=== PATIENT | female | born 1945 | race Caucasian/White ===

== ENCOUNTER 2017-12-08 16:06 | Emergency (ER) | payer MEDICARE, OTHER ==
[~2017-12-08] VITALS: Ht 170.2 cm; Wt 122.5 kg
--- NOTE | 2017-12-08 16:32 | ED Head Injury ---
General Chief Complaint: Head/Cervical Problems Stated Complaint: HEAD INJ Source: patient Exam Limitations: no limitations History of Present Illness Date Seen by Provider: Dec 08, 2017 Time Seen by Provider: 16:10 Initial Comments Patient fell at a local event today at about 1230 and struck her head. She declined EMS transfer at the time. She self presented to outside facility ( [facility]) for evaluation. She was noted to have large hematoma and small laceration. The laceration was repaired but patient is on Coumadin and needed CT scan. She is transferred here for further evaluation and CT scan. Patient denies loss of consciousness but was a little nauseated after the incident. INR from the outside facility is 3.4. Does have some residual headache and large hematoma to the right frontal area but no other injury. Allergies and Home Medications Allergies Coded Allergies: codeine (Verified Allergy, Unknown, 12/08/17) Home Medications Unable to Obtain Active Prescriptions or Reported Meds Constitutional: no symptoms reported Eyes: No Symptoms Reported Ears, Nose, Mouth, Throat: no symptoms reported Respiratory: no symptoms reported Cardiovascular: no symptoms reported Gastrointestinal: no symptoms reported Skin: see HPI, change in color, lesions Psychiatric/Neurological: No Symptoms Reported All Other Systems Reviewed Negative Unless Noted: Yes Past Tdcirzo-Jtrxdd-Ufwtcy Hx Patient Social History Alcohol Use: Denies Use Recreational Drug Use: No Smoking Status: Never a Smoker Surgeries History of Surgeries: Yes Surgeries: Adenoidectomy, Gallbladder, Hysterectomy, Orthopedic, Tonsillectomy Respiratory History of Respiratory Disorde: No Cardiovascular History of Cardiac Disorders: Yes Cardiac Disorders: Deep Vein Thrombosis, High Cholesterol Neurological History of Neurological Disord: No Genitourinary History of Genitourinary Disor: No Gastrointestinal History of Gastrointestinal Di: No Musculoskeletal History of Musculoskeletal Dis: Yes Musculoskeletal Disorders: Arthritis Endocrine History of Endocrine Disorders: Yes Endocrine Disorders: Diabetes, Non-Insulin dep Reviewed Nursing Assessment Reviewed/Agree w Nursing PMH: Yes Family Medical History Significant Family History: No Pertinent Family Hx Physical Exam Vital Signs Vital Signs - First Documented 12/08/17 16:33 Temp 97.5 Pulse 90 Resp 16 B/P (MAP) 143/81 (101) Pulse Ox 99 O2 Delivery Room Air Capillary Refill : General Appearance: WD/WN, no apparent distress HEENT: PERRL/EOMI, TMs normal, pharynx normal Neck: full range of motion, supple Cardiovascular: regular rate, rhythm, no murmur Respiratory: lungs clear, normal breath sounds Gastrointestinal: non tender, soft Psychiatric: alert, oriented x 3 Crainal Nerves: normal hearing, normal speech, PERRL Motor/Sensory: no motor deficit, no sensory deficit Skin: normal color, warm/dry Eh Coma Score Best Eye Response: (4) Open Spontaneously Best Verbal Response: (5) Oriented Best Motor Response: (6) Obeys Commands Progress/Results/Core Measures Results/Orders My Orders Orders - MEGAN HOLCOMB MD Ct Head Wo (12/08/17 16:07) Vital Signs/I&O Vital Sign - Last 12Hours 12/08/17 16:33 Temp 97.5 Pulse 90 Resp 16 B/P (MAP) 143/81 (101) Pulse Ox 99 O2 Delivery Room Air Progress Note : Progress Note Seen and evaluated. CT scan of head ordered. Lab and chart reviewed from [facility]. Hemoglobin 13.3, white cell count 6.6 and platelets of 205. Chemistries are normal. INR was 3.4. 1535: CT of the head was negative. I did discuss the case with Dr. Forte. He recommends offering 12 are observation. This was done and the patient declined. I went over discharge instructions in full with the patient and family as well as return precautions to ensure that the patient return if there is any concerns. We did discuss the risk of bleeding in the head even with a negative CT scan and patient verbalize understanding. Discharged home with return precautions. Patient family verbalized understanding instructions and agreement with plan. Diagnostic Imaging Diagonstic Imaging: CT Plain Films/CT/US/NM/MRI: head Comments [place] NAME: [facility] REC#: [id number] PT STATUS: REG ER : 1945 PHYSICIAN: MEGAN HOLCOMB MD ADMIT DATE: 12/08/17/ER Draft Date of Exam:12/08/17 CT HEAD WO CLINICAL INDICATION: Patient is status post fall with large hematoma on right forehead. EXAM: Axial CT scan of the brain performed without IV contrast. COMPARISON: None. FINDINGS: There is no evidence of acute cerebral infarct, intracranial hemorrhage, or gross mass effect. There are some subtle focal areas of low-attenuation white matter changes within both cerebral hemispheres, likely representing chronic small vessel ischemic disease. There is normal rodriguez-white matter distinction. The brain parenchymal volume appears appropriate for patient's age. There is no significant midline shift or herniation. There is no evidence of hydrocephalus. The basal cisterns are unremarkable. There is a large extracranial soft tissue hematoma/swelling in the right frontal region. There is no skull fracture. The skull, extracranial soft tissue, and orbits are unremarkable. There is minimal mucosal thickening involving the left maxillary sinus. IMPRESSION: 1: There is no evidence of intracranial hemorrhage or other acute intracranial process. 2: There is a large extracranial hematoma/swelling in the right frontal region. There is no skull fracture. 3: Age-related brain parenchymal changes. Dictated on workstation # [id number] Dict: 12/08/17 1638 Trans: 12/08/17 1643 [id number] Interpreted by: DEB CRUZ MD Electronically signed by: Reviewed: Reviewed by Me Departure Impression Impression: Primary Impression: Concussion without loss of consciousness Qualified Codes: S06.0X0A - Concussion without loss of consciousness, initial encounter Additional Impression: Hematoma of frontal scalp Qualified Codes: S00.03XA - Contusion of scalp, initial encounter Disposition: 01 HOME, SELF-CARE Condition: Stable Departure-Patient Inst. Decision time for Depature: 17:38 Referrals: NO,LOCAL PHYSICIAN (PCP/Family) Primary Care Physician Patient Instructions: Concussion, Adult (DC), HEAD RNYFXR-KHPET-CH WAKE-UP Add. Discharge Instructions: All discharge instructions reviewed with patient and/or family. Voiced understanding. Continue previous discharge instructions for the sutured laceration. You should talk with her primary care provider about Coumadin/warfarin use. Skipped tomorrow morning's dose of your Coumadin/warfarin and returned to normal on Monday morning. You may use ice packs to the affected area 20 minutes per hour as needed for pain and swelling. Return for worse pain, vomiting, vision or balance problems, weakness, coordination problems or other concerns as needed. You may take 2 extra strength Tylenol/acetaminophen (1000 mg total) every 6 hours as needed for pain. Scripts Unable to Obtain Active Prescriptions or Reported Meds MEGAN HOLCOMB MD Dec 08, 2017 16:32
--- NOTE | 2017-12-08 16:44 | Diagnostic Imaging Report ---
CLINICAL INDICATION: Patient is status post fall with large hematoma on right forehead. EXAM: Axial CT scan of the brain performed without IV contrast. COMPARISON: None. FINDINGS: There is no evidence of acute cerebral infarct, intracranial hemorrhage, or gross mass effect. There are some subtle focal areas of low-attenuation white matter changes within both cerebral hemispheres, likely representing chronic small vessel ischemic disease. There is normal rodriguez-white matter distinction. The brain parenchymal volume appears appropriate for patient's age. There is no significant midline shift or herniation. There is no evidence of hydrocephalus. The basal cisterns are unremarkable. There is a large extracranial soft tissue hematoma/swelling in the right frontal region. There is no skull fracture. The skull, extracranial soft tissue, and orbits are unremarkable. There is minimal mucosal thickening involving the left maxillary sinus. IMPRESSION: 1: There is no evidence of intracranial hemorrhage or other acute intracranial process. 2: There is a large extracranial hematoma/swelling in the right frontal region. There is no skull fracture. 3: Age-related brain parenchymal changes. Dictated by: Dictated on workstation # [id number]
[2017-12-08 18:04] VITALS: BP 140/82
== END 2017-12-08 18:04 | disposition home or self-care (01) ==
LOC: EDUNIT# 16:06 → ER 16:07
DX: S06.0X0A Concussion without loss of consciousness, initial encounter (principal); R40.2142 Coma scale, eyes open, spontaneous, at arrival to emergency department; R40.2252 Coma scale, best verbal response, oriented, at arrival to emergency department; R40.2362 Coma scale, best motor response, obeys commands, at arrival to emergency department; E78.00 Pure hypercholesterolemia, unspecified; E11.9 Type 2 diabetes mellitus without complications; Z88.5 Allergy status to narcotic agent; Z90.710 Acquired absence of both cervix and uterus; Z90.89 Acquired absence of other organs; Z86.718 Personal history of other venous thrombosis and embolism; Z79.01 Long term (current) use of anticoagulants; W22.09XA Striking against other stationary object, initial encounter
CPT/HCPCS: 70450; 99282

== ENCOUNTER 2020-05-30 10:24 | Emergency (ER) | payer MEDICARE, OTHER ==
[~2020-05-30] VITALS: Ht 172.2 cm; Wt 135.2 kg
--- OUTSIDE RECORDS SUMMARY | 2020-05-30 10:30 | XMS REPORT ---
Author Author Sonia Goldstein [facility] Address [address] [place], [place] [address] Care Team Providers Care Plant Technical Specialist Name Role Phone Rachael Goldstein PCP Allergies and Adverse Reactions Name Reaction Notes codeine sulfate Plan of Treatment Not available. Medications Active Name Start Date Estimated Completion Date SIG Co mments cranberry extract 500 mg oral capsule take 1 capsule by oral route 2 times a day Tylenol Extra Strength 500 mg oral tablet take 2 tablets (1,000 mg) by oral route every 6 hours as needed Calcium 600 600 mg calcium (1,500 mg) oral tablet B12 500 mcg Orals lozenge Chew one gummie once daily [place]-3 350 mg-235 mg- 90 mg-597 mg oral capsule,delayed release (DR/EC) take 2 capsules by oral route daily Vitamin C 1000 mcg oral Take one tablet b y mouth once daily [place] Black Elderberry 1000 mg take tw o casules by mouth in the morning magnesium 250 mg oral tablet take 1 table t by oral route daily Vision Formula (with lutein) 1,000 unit-200 mg-60 unit-2 mg oral tablet take 1 tablet by oral route daily Betimol 0.5 % ophthalmic (eye) drops instill 1 drop into affected eye(s) by ophthalmic route 2 times per day latanoprost 0.005 % ophthalmic (eye) drops instill 1 drop into affected eye(s) by ophthalmic route once daily in the evening chlorthalidone 25 mg oral tablet 10/10/2019 10/04/2020 take 1 tablet (25 mg) by oral route once daily for 90 days One Touch Test Strips 0 10/10/2019 06/01/2021 use as indicated. DX E10.9 spironolactone 50 mg oral tablet 11/11/2019 ... TAKE 1 TABLET BY MOUTH TWICE DAILY .... Coumadin 1 mg oral tablet 12/18/2019 12/12/2020 Take 1 tablet by mouth daily as directed Coumadin 5 mg oral tablet 12/18/2019 12/12/2020 Take 1 tablet by mouth daily as directed simvastatin 20 mg oral tablet 02/03/2020 .. . TAKE 1 TABLET BY MOUTH EVERY DAY LATE IN THE DAY ... furosemide 80 mg oral tablet 02/11/2020 ... TAKE 1 TABLET BY MOUTH ONCE DAILY .... Effer-K 25 mEq oral tablet, effervescent 02/11/2020 ... TAKE 3 TABLETS BY MOUTH TWICE DAILY ..... lisinopril 10 mg oral tablet 02/11/2020 ... TAKE 1 TABLET BY MOUTH EVERY DAY ... 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, managed as type 2 Active Vital Signs Date Time BP-Sys(mm[Hg] BP-Magaly(mm[Hg]) HR(bpm) RR(rpm) Temp WT HT HC BMI BSA BMI Percentile O2 Sat(%) 12/23/2019 10:43:00 AM 126 mm[Hg] 68 mm[Hg] 90 {beats}/min 18 rpm 98.6 F 297 lbs 67 in 46.5163 kg/m2 2.5236 m2 99 % 10/10/2019 11:35:00 AM 108 mm[Hg] 70 mm[Hg] 62 {beats}/min 18 rpm 98.2 F 299 lbs 67 in 46.83 kg/m2 2.53 m2 100 % Social History Name Description Comments Tobacco Never smoker History of Procedures Date Ordered Description Order Status 10/10/2019 12:31 PM PROTHROMBIN TIME Reviewed 10/24/2019 11:02 AM PROTHROMBIN TIME Reviewed 10/24/2019 12:00 AM CAPILLARY BLOOD DRAW Reviewed 11/07/2019 12:00 AM CAPILLARY BLOOD DRAW Reviewed 11/07/2019 10:45 AM PROTHROMBIN TIME Reviewed 12/04/2019 12:00 AM COMPLETE CBC W/AUTO DIFF WBC Reviewed 12/04/2019 12:00 AM COMPREHEN METABOLIC PANEL Reviewed 12/04/2019 12:00 AM ASSAY THYROID STIM HORMONE Reviewed 12/04/2019 12:00 AM ASSAY OF TOTAL THYROXINE Reviewed 12/04/2019 12:00 AM GLYCOSYLATED HEMOGLOBIN TEST Reviewed 12/04/2019 12:00 AM LIPID PANEL Reviewed 12/04/2019 12:00 AM VITAMIN D 25 HYDROXY Reviewed 12/12/2019 12:00 AM COLLECTION VENOUS BLOOD VENIPUNCTURE Rev iewed 12/12/2019 12:02 PM PROTHROMBIN TIME Reviewed 12/23/2019 11:26 AM PROTHROMBIN TIME Reviewed 12/23/2019 12:00 AM CAPILLARY BLOOD DRAW Reviewed 01/30/2020 10:55 AM PROTHROMBIN TIME Reviewed 01/30/2020 12:00 AM CAPILLARY BLOOD DRAW Reviewed 03/05/2020 11:05 AM PROTHROMBIN TIME Reviewed 03/05/2020 12:00 AM CAPILLARY BLOOD DRAW Reviewed 04/09/2020 5:27 PM PROTHROMBIN TIME Reviewed Results Summary Date and Description Results 10/10/2019 12:31 PM PROTIME 20.90 secsINR 1.70 s ecs 10/24/2019 11:02 AM PROTIME 50.80 secsINR 4.20 s ecs 11/07/2019 10:45 AM PROTIME 35.20 secsINR 2.90 s ecs 12/12/2019 11:15 AM WBC 5.5 RBC 4.11 HGB 12.40 g /dLHCT 38.50 %MCV 94.0 fLMCH 30.20 pgMCHC 32.20 g/dLRDW SD 48 fLRDW CV 13.90 %MPV 11.90 fLPLT 193 x10E3/uLNRBC# 0.00 NRBC% 0.0 %NEUT 55.6 %LYMP 27.3 %MONO 10.5 %EOS 5.5 %BASO 0.7 #NEUT 3.06 #LYMP 1.50 #MONO 0.58 #EOS 0.30 #BASO 0.04 MANUAL DIFF NOT IND TSH 1.66 T4 8.3 GLUCOSE 103 SODIUM 135 POTASSIUM 4.5 CHLORIDE 97.0 mmol/LCO2 28 BUN 12.0 mg/dLCREATININE 0.650 mg/dLSGOT/AST 17 SGPT/ALT 17 ALK PHOS 61 TOTAL P ROTEIN 6.8 ALBUMIN 4.5 TOTAL BILI 1.0 CALCIUM 9.70 mg/dLAGE 74 GFR NonAA 90 GFR AA 109 eGFR 90 mL/min/1.73meGFR AA* >60 mL/min/1.73mTRIGLYCERIDES 111 CHOLESTEROL 168.0 mg/dLHDL 64 TOT CHOL/HDL 2.6 LDL (CALC) 82 VITAMIN D 36.1 HGB A1C 5.80 %Est Avg Glucose 119.8 12/12/2019 12:02 PM PROTIME 41.0 secsINR 3.40 se cs 12/23/2019 11:26 AM PROTIME 32.0 secsINR 2.70 se cs 01/30/2020 10:55 AM PROTIME 37.30 secsINR 3.10 s ecs 03/05/2020 11:05 AM PROTIME 41.70 secsINR 3.50 s ecs 04/09/2020 5:27 PM PROTIME 50.20 secsINR 4.20 s ecs History Of Immunizations Not available. 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 Nov 07 2019 10:45AM Hyperlipidemia Dec 04 2019 4:16PM Rheumatoid arteritis Dec 04 2019 4:16PM Diabetes mellitus type 1.5, managed as type 2 Dec 04 2019 4 :16PM Mixed hyperlipidemia Dec 04 2019 4:16PM Acquired hypothyroidism Dec 04 2019 4:16PM Vitamin D deficiency Dec 04 2019 4:16PM USP (current) use of anticoagulants Dec 12 2019 12:02P M Macular degeneration Dec 23 2019 10:48AM Edema Dec 23 2019 10:48AM History of DVT (deep vein thrombosis) Dec 23 2019 10:48AM Lupus Dec 23 2019 10:48AM Diabetes mellitus type 1.5, managed as type 2 Dec 23 2019 10 :48AM USP (current) use of anticoagulants Jan 30 2020 10:55A M USP (current) use of anticoagulants Mar 05 2020 11:05A 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 Wiliam Emmanuel DO 01/30/2020 Laboratory Rachael Goldstein BACK TENDER INSULATION BOARD 12/23/2019 Office visit Rachael Goldstein BACK TENDER INSULATION BOARD 12/12/[address] Wiliam Emmanuel DO 11/07/2019 Laboratory Rachael Goldstein BACK TENDER INSULATION BOARD 10/24/2019 Laboratory Meghan Bowen APR N 10/10/2019 Office visit Rachael Goldstein BACK TENDER INSULATION BOARD
--- OUTSIDE RECORDS SUMMARY | 2020-05-30 10:30 | XMS REPORT ---
Author Author Sonia Goldstein [facility] Address [address] [place], [place] [address] Care Team Providers Care Solid Glass Rod Dowel Machine Operator Name Role Phone Rachael Goldstein PCP Allergies [...] Orals lozenge Chew one gummie once daily [place]-3 350 mg-235 mg- 90 mg-597 mg oral [...] Reviewed 04/09/2020 5:27 PM PROTHROMBIN TIME Reviewed 04/23/2020 11:06 AM PROTHROMBIN TIME Reviewed Results Summary Date and [...] PM PROTIME 50.20 secsINR 4.20 s ecs 04/23/2020 11:06 AM PROTIME 31.30 secsINR 2.60 s ecs History Of Immunizations Not available. [...] type 2 Oct 10 2019 11 :40AM [facility] (current) use of anticoagulants Oct 24 2019 11:02A M [facility] use of anticoagulants Nov 07 2019 10:45AM Hyperlipidemia Dec 04 2019 4:16PM Rheumatoid arteritis Dec 04 2019 4:16PM Diabetes mellitus type 1.5, managed as type 2 Dec 04 2019 4 :16PM Mixed hyperlipidemia Dec 04 2019 4:16PM Acquired hypothyroidism Dec 04 2019 4:16PM Vitamin D deficiency Dec 04 2019 4:16PM [facility] (current) use of anticoagulants Dec 12 2019 12:02P M Macular degeneration Dec 23 2019 10:48AM Edema Dec 23 2019 10:48AM History of DVT (deep vein thrombosis) Dec 23 2019 10:48AM Lupus Dec 23 2019 10:48AM Diabetes mellitus type 1.5, managed as type 2 Dec 23 2019 10 :48AM [facility] (current) use of anticoagulants Jan 30 2020 10:55A M [facility] (current) use of anticoagulants Mar 05 2020 11:05A 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 Wiliam Emmanuel DO 01/30/2020 Laboratory Rachael Goldstein FIBER ARTIST 12/23/2019 Office visit Rachael Goldstein FIBER ARTIST 12/12/[address] Wiliam Emmanuel DO 11/07/2019 Laboratory Rachael Goldstein FIBER ARTIST 10/24/2019 Laboratory Meghan Bowen APR N 10/10/2019 Office visit Rachael Goldstein FIBER ARTIST
--- OUTSIDE RECORDS SUMMARY | 2020-05-30 10:30 | XMS REPORT ---
Author Author Sonia Goldstein [facility] Address [address] [place], [place] [address] Care Team Providers Care Patient Scheduler Name Role Phone Rachael Goldstein PCP Allergies [...] Orals lozenge Chew one gummie once daily [place]-3 350 mg-235 mg- 90 mg-597 mg oral [...] type 2 Oct 10 2019 11 :40AM nursing home (current) use of anticoagulants Oct 24 2019 11:02A M nursing home use of anticoagulants Nov 07 2019 10:45AM Hyperlipidemia Dec 04 2019 4:16PM Rheumatoid arteritis Dec 04 2019 4:16PM Diabetes mellitus type 1.5, managed as type 2 Dec 04 2019 4 :16PM Mixed hyperlipidemia Dec 04 2019 4:16PM Acquired hypothyroidism Dec 04 2019 4:16PM Vitamin D deficiency Dec 04 2019 4:16PM nursing home (current) use of anticoagulants Dec 12 2019 12:02P M Macular degeneration Dec 23 2019 10:48AM Edema Dec 23 2019 10:48AM History of DVT (deep vein thrombosis) Dec 23 2019 10:48AM Lupus Dec 23 2019 10:48AM Diabetes mellitus type 1.5, managed as type 2 Dec 23 2019 10 :48AM nursing home (current) use of anticoagulants Jan 30 2020 10:55A M nursing home (current) use of anticoagulants Mar 05 2020 11:05A 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 Wiliam Emmanuel DO 01/30/2020 Laboratory Rachael Goldstein LENDING ACTIVITIES SUPERVISOR 12/23/2019 Office visit Rachael Goldstein LENDING ACTIVITIES SUPERVISOR 12/12/[address] Wiliam Emmanuel DO 11/07/2019 Laboratory Rachael Goldstein LENDING ACTIVITIES SUPERVISOR 10/24/2019 Laboratory Meghan Bowen APR N 10/10/2019 Office visit Rachael Goldstein LENDING ACTIVITIES SUPERVISOR
--- OUTSIDE RECORDS SUMMARY | 2020-05-30 10:30 | XMS REPORT ---
Author Author Sonia Emmanuel [facility] Address [address] [place], [place] [address] Care Team Providers Care Bag Bleacher Name Role Phone Wiliam Emmanuel PCP Allergies and Adverse Reactions Name Reaction [...] Orals lozenge Chew one gummie once daily [place]-3 350 mg-235 mg- 90 mg-597 mg oral [...] 03/05/2020 12:00 AM CAPILLARY BLOOD DRAW Reviewed Results Summary Date and Description Results [...] AM PROTIME 41.70 secsINR 3.50 s ecs History Of Immunizations Not available. [...] type 2 Oct 10 2019 11 :40AM custodial (current) use of anticoagulants Oct 24 2019 11:02A M manager terminal use of anticoagulants Nov 07 2019 10:45AM Hyperlipidemia Dec 04 2019 4:16PM Rheumatoid arteritis Dec 04 2019 4:16PM Diabetes mellitus type 1.5, managed as type 2 Dec 04 2019 4 :16PM Mixed hyperlipidemia Dec 04 2019 4:16PM Acquired hypothyroidism Dec 04 2019 4:16PM Vitamin D deficiency Dec 04 2019 4:16PM custodial (current) use of anticoagulants Dec 12 2019 12:02P M Macular degeneration Dec 23 2019 10:48AM Edema Dec 23 2019 10:48AM History of DVT (deep vein thrombosis) Dec 23 2019 10:48AM Lupus Dec 23 2019 10:48AM Diabetes mellitus type 1.5, managed as type 2 Dec 23 2019 10 :48AM custodial (current) use of anticoagulants Jan 30 2020 10:55A M custodial (current) use of anticoagulants Mar 05 2020 11:05A M Payers Insurance Name Company Name Plan Name Plan Number Policy Number Wenceslao cy Group Number Start Date Medicare RH Medicare RHC [id number] N/ A [facility] [id number] N/A Medicare Part A Medicare - Lab/Xray [id number] N/A History of Encounters Visit Date Visit Type Provider 03/05/[address] Wiliam Emmanuel DO 01/30/2020 Laboratory Rachael Goldstein OTOLOGIST 12/23/2019 Office visit Rachael Goldstein OTOLOGIST 12/12/[address] Wiliam Emmanuel DO 11/07/2019 Laboratory Rachael Goldstein OTOLOGIST 10/24/2019 Laboratory Meghan Bowen APR N 10/10/2019 Office visit Rachael Goldstein APRN
--- OUTSIDE RECORDS SUMMARY | 2020-05-30 10:30 | XMS REPORT ---
Author Author Sonia Goldstein [facility] Address [address] [place], [place] [address] Care Team Providers Care Director Investor Relations Name Role Phone Rachael Goldstein PCP Allergies [...] Orals lozenge Chew one gummie once daily [place]-3 350 mg-235 mg- 90 mg-597 mg oral [...] Reviewed 04/09/2020 5:27 PM PROTHROMBIN TIME Reviewed 04/09/2020 12:00 AM CAPILLARY BLOOD DRAW Reviewed 04/23/2020 11:06 AM PROTHROMBIN TIME Reviewed 04/23/2020 12:00 AM CAPILLARY BLOOD DRAW Reviewed Results [...] type 2 Oct 10 2019 11 :40AM adjunct faculty for medical terminology (current) use of anticoagulants Oct 24 2019 11:02A M adjunct faculty for medical terminology use of anticoagulants Nov 07 2019 10:45AM Hyperlipidemia Dec 04 2019 4:16PM Rheumatoid arteritis Dec 04 2019 4:16PM Diabetes mellitus type 1.5, managed as type 2 Dec 04 2019 4 :16PM Mixed hyperlipidemia Dec 04 2019 4:16PM Acquired hypothyroidism Dec 04 2019 4:16PM Vitamin D deficiency Dec 04 2019 4:16PM snf (current) use of anticoagulants Dec 12 2019 12:02P M Macular degeneration Dec 23 2019 10:48AM Edema Dec 23 2019 10:48AM History of DVT (deep vein thrombosis) Dec 23 2019 10:48AM Lupus Dec 23 2019 10:48AM Diabetes mellitus type 1.5, managed as type 2 Dec 23 2019 10 :48AM snf (current) use of anticoagulants Jan 30 2020 10:55A M adjunct faculty for medical terminology (current) use of anticoagulants Mar 05 2020 11:05A M snf (current) use of anticoagulants Apr 09 2020 5:27P M snf (current) use of anticoagulants Apr 23 2020 11:06A M Payers Insurance Name Company Name Plan Name Plan Number Policy Number Wenceslao cy Group Number Start Date Medicare RHC Medicare RHC [id number] N/ A [facility] JESSICA [id number] N/A Medicare Part A Medicare - Lab/Xray [id number] N/A History of Encounters Visit Date Visit Type Provider 04/23/2020 Laboratory Rachale Goldstein LEATHER STAKER 04/09/2020 Laboratory Rachael Goldstein LEATHER STAKER 03/05/[address] Wiliam Emmanuel DO 01/30/2020 Laboratory Rachael Goldstein LEATHER STAKER 12/23/2019 Office visit Rachael Goldstein LEATHER STAKER 12/12/[address] Wiliam Emmanuel DO 11/07/2019 Laboratory Rachael Goldstein LEATHER STAKER 10/24/2019 Laboratory Meghan Bowen APR N 10/10/2019 Office visit Rachael Goldstein LEATHER STAKER
--- OUTSIDE RECORDS SUMMARY | 2020-05-30 10:31 | XMS REPORT ---
Author Author Sonia Emmanuel [facility] Address [address] [place], [place] [phone] Care Team Providers Care Elder Counselor Name Role Phone Wiliam Emmanuel PCP Allergies and Adverse Reactions Name Reaction Notes codeine sulfate Plan of Treatment Not available. Medications Active Name Start Date Estimated Completion Date SIG Co mments Effer-K 25 mEq oral tablet, effervescent Take 3 tablets by mouth twice daily cranberry extract 500 mg oral capsule take 1 capsule by oral route 2 times a day Tylenol Extra Strength 500 mg oral tablet take 2 tablets (1,000 mg) by oral route every 6 hours as needed Calcium 600 600 mg calcium (1,500 mg) oral tablet B12 500 mcg Orals lozenge Chew one gummie once daily [place]-3 350 mg-235 mg- 90 mg-597 mg oral [...] take 1 tablet by oral route daily Coumadin 1 mg oral tablet Take 1 tablet b y mouth daily as directed Coumadin 5 mg oral tablet Take 1 tablet b y mouth daily as directed simvastatin 20 mg oral tablet ta ke 1 tablet (20 mg) by oral route once daily in the evening furosemide 80 mg oral tablet take 1 table t (80 mg) by oral route once daily lisinopril 10 mg oral tablet take 1 table t (10 mg) by oral route once daily Betimol 0.5 % ophthalmic (eye) drops [...] 1 TABLET BY MOUTH TWICE DAILY .... 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, managed as type 2 Active Vital Signs Date Time BP-Sys(mm[Hg] BP-Magaly(mm[Hg]) HR(bpm) RR(rpm) Temp WT HT HC BMI BSA BMI Percentile O2 Sat(%) 10/10/2019 11:35:00 AM 108 mm[Hg] 70 mm[Hg] 62 {beats}/min 18 rpm 98.2 F 299 lbs 67 in 46.8295 kg/m2 2.5321 m2 100 % Social History Name Description Comments Tobacco Never smoker History of Procedures Date Ordered Description Order Status 10/10/2019 12:31 PM PROTHROMBIN TIME Reviewed 10/24/2019 11:02 AM PROTHROMBIN TIME Reviewed 10/24/2019 12:00 AM CAPILLARY BLOOD DRAW Reviewed 11/07/2019 12:00 AM CAPILLARY BLOOD DRAW Reviewed 11/07/2019 10:45 AM PROTHROMBIN TIME Reviewed 12/04/2019 12:00 AM COMPLETE CBC W/AUTO DIFF WBC Returned 12/04/2019 12:00 AM COMPREHEN METABOLIC PANEL Returned 12/04/2019 12:00 AM ASSAY THYROID STIM HORMONE Returned 12/04/2019 12:00 AM ASSAY OF TOTAL THYROXINE Returned 12/04/2019 12:00 AM GLYCOSYLATED HEMOGLOBIN TEST Returned 12/04/2019 12:00 AM LIPID PANEL Returned 12/04/2019 12:00 AM VITAMIN D 25 HYDROXY Returned 12/12/2019 12:00 AM COLLECTION VENOUS BLOOD VENIPUNCTURE Rev iewed 12/12/2019 12:02 PM PROTHROMBIN TIME Reviewed Results Summary Date and Description Results 10/10/2019 12:31 PM PROTIME 20.90 secsINR 1.70 s ecs 10/24/2019 11:02 AM PROTIME 50.80 secsINR 4.20 s ecs 11/07/2019 10:45 AM PROTIME 35.20 secsINR 2.90 s ecs 12/12/2019 12:02 PM PROTIME 41.0 secsINR 3.40 se cs History Of Immunizations Not available. History of [...] type 2 Oct 10 2019 11 :40AM continuous churn buttermaker (current) use of anticoagulants Oct 24 2019 11:02A M continuous churn buttermaker use of anticoagulants Nov 07 2019 10:45AM Hyperlipidemia Dec 04 2019 4:16PM Rheumatoid arteritis Dec 04 2019 4:16PM Diabetes mellitus type 1.5, managed as type 2 Dec 04 2019 4 :16PM Mixed hyperlipidemia Dec 04 2019 4:16PM Acquired hypothyroidism Dec 04 2019 4:16PM Vitamin D deficiency Dec 04 2019 4:16PM continuous churn buttermaker (current) use of anticoagulants Dec 12 2019 12:02P M Payers Insurance Name Company Name Plan Name Plan Number Policy Number Wenceslao cy Group Number Start Date Medicare RHC Medicare RHC [id number] N/ A [facility] [id number] N/A Medicare Part A Medicare - Lab/Xray [id number] N/A History of Encounters Visit Date Visit Type Provider 12/12/[address] Wiliam Emmanuel DO 11/07/2019 Laboratory Rachael Goldstein ENGAGEMENT LIAISON 10/24/2019 Laboratory Meghan Bowen APR N 10/10/2019 Office visit Rachael Goldstein APRN
--- OUTSIDE RECORDS SUMMARY | 2020-05-30 10:31 | XMS REPORT ---
Author Author Sonia Goldstein [facility] Address [address] [place], [place] [address] Care Team Providers Care Construction Driver Name Role Phone Rachael Goldstein PCP Allergies [...] Orals lozenge Chew one gummie once daily [place]-3 350 mg-235 mg- 90 mg-597 mg oral [...] take 1 tablet by oral route daily simvastatin 20 mg oral tablet ta ke [...] 1 tablet by mouth daily as directed Problem List Description Status Onset Hyperlipidemia Active [...] 01/30/2020 12:00 AM CAPILLARY BLOOD DRAW Reviewed Results [...] AM PROTIME 37.30 secsINR 3.10 s ecs History Of Immunizations Not available. [...] type 2 Oct 10 2019 11 :40AM terminal press operator (current) use of anticoagulants Oct 24 2019 11:02A M longterm use of anticoagulants Nov 07 2019 10:45AM Hyperlipidemia Dec 04 2019 4:16PM Rheumatoid arteritis Dec 04 2019 4:16PM Diabetes mellitus type 1.5, managed as type 2 Dec 04 2019 4 :16PM Mixed hyperlipidemia Dec 04 2019 4:16PM Acquired hypothyroidism Dec 04 2019 4:16PM Vitamin D deficiency Dec 04 2019 4:16PM longterm (current) use of anticoagulants Dec 12 2019 12:02P M Macular degeneration Dec 23 2019 10:48AM Edema Dec 23 2019 10:48AM History of DVT (deep vein thrombosis) Dec 23 2019 10:48AM Lupus Dec 23 2019 10:48AM Diabetes mellitus type 1.5, managed as type 2 Dec 23 2019 10 :48AM terminal press operator (current) use of anticoagulants Jan 30 2020 10:55A M Payers Insurance Name Company Name Plan Name Plan Number Policy Number Wenceslao cy Group Number Start Date Medicare RHC Medicare RHC [id number] N/ A GE - [place] GE [id number] N/A Medicare Part A Medicare - Lab/Xray [id number] N/A History of Encounters Visit Date Visit Type Provider 01/30/2020 Laboratory Rachael Goldstein PRE SALES TECHNICAL CONSULTANT 12/23/2019 Office visit Rachael Goldstein PRE SALES TECHNICAL CONSULTANT 12/12/[address] Wiliam Emmanuel DO 11/07/2019 Laboratory Rachael Goldstein PRE SALES TECHNICAL CONSULTANT 10/24/2019 Laboratory Meghan Bowen APR N 10/10/2019 Office visit Rachael Goldstein PRE SALES TECHNICAL CONSULTANT
--- OUTSIDE RECORDS SUMMARY | 2020-05-30 10:31 | XMS REPORT ---
Author Author Sonia Goldstein [facility] Address [address] [place], [place] [address] Care Team Providers Care Instructional Coach Name Role Phone Rachael Goldstein PCP Allergies [...] Orals lozenge Chew one gummie once daily [place]-3 350 mg-235 mg- 90 mg-597 mg oral [...] type 2 Oct 10 2019 11 :40AM manager terminal (current) use of anticoagulants Oct 24 2019 11:02A M FPC use of anticoagulants Nov 07 2019 10:45AM Hyperlipidemia Dec 04 2019 4:16PM Rheumatoid arteritis Dec 04 2019 4:16PM Diabetes mellitus type 1.5, managed as type 2 Dec 04 2019 4 :16PM Mixed hyperlipidemia Dec 04 2019 4:16PM Acquired hypothyroidism Dec 04 2019 4:16PM Vitamin D deficiency Dec 04 2019 4:16PM FPC (current) use of anticoagulants Dec 12 2019 12:02P M Macular degeneration Dec 23 2019 10:48AM Edema Dec 23 2019 10:48AM History of DVT (deep vein thrombosis) Dec 23 2019 10:48AM Lupus Dec 23 2019 10:48AM Diabetes mellitus type 1.5, managed as type 2 Dec 23 2019 10 :48AM manager terminal (current) use of anticoagulants Jan 30 2020 10:55A M Payers Insurance Name Company Name Plan Name Plan Number Policy Number Wenceslao cy Group Number Start Date Medicare RHC Medicare RHC [id number] N/ A GE - [place] GE [id number] N/A Medicare Part A Medicare - Lab/Xray [id number] N/A History of Encounters Visit Date Visit Type Provider 01/30/2020 Laboratory Rachael Goldstein STAFF COUNSELOR 12/23/2019 Office visit Rachael Goldstein STAFF COUNSELOR 12/12/[address] Wiliam Emmanuel DO 11/07/2019 Laboratory Rachael Goldstein STAFF COUNSELOR 10/24/2019 Laboratory Meghan Bowen APR N 10/10/2019 Office visit Rachael Goldstein STAFF COUNSELOR
--- OUTSIDE RECORDS SUMMARY | 2020-05-30 10:31 | XMS REPORT ---
Author Author Sonia Emmanuel [facility] Address [address] [place], [place] [id number] Care Team Providers Care Fleet Assistant Name Role Phone Wiliam Emmanuel PCP Allergies [...] Orals lozenge Chew one gummie once daily [place]-3 350 mg-235 mg- 90 mg-597 mg oral [...] Reviewed 03/05/2020 11:05 AM PROTHROMBIN TIME Reviewed Results Summary Date [...] type 2 Oct 10 2019 11 :40AM snf (current) use of anticoagulants Oct 24 2019 11:02A M terminal makeup operator use of anticoagulants Nov 07 2019 10:45AM Hyperlipidemia Dec 04 2019 4:16PM Rheumatoid arteritis Dec 04 2019 4:16PM Diabetes mellitus type 1.5, managed as type 2 Dec 04 2019 4 :16PM Mixed hyperlipidemia Dec 04 2019 4:16PM Acquired hypothyroidism Dec 04 2019 4:16PM Vitamin D deficiency Dec 04 2019 4:16PM terminal makeup operator (current) use of anticoagulants Dec 12 2019 12:02P M Macular degeneration Dec 23 2019 10:48AM Edema Dec 23 2019 10:48AM History of DVT (deep vein thrombosis) Dec 23 2019 10:48AM Lupus Dec 23 2019 10:48AM Diabetes mellitus type 1.5, managed as type 2 Dec 23 2019 10 :48AM terminal makeup operator (current) use of anticoagulants Jan 30 2020 10:55A M snf (current) use of anticoagulants Mar 05 2020 11:05A M Payers Insurance Name Company Name Plan Name Plan Number Policy Number Wenceslao cy Group Number Start Date Medicare RHC Medicare RHC [id number] N/ A GE - [place] GE [id number] N/A Medicare Part A Medicare - Lab/Xray [id number] N/A History of Encounters Visit Date Visit Type Provider 03/05/[address] Wiliam Emmanuel DO 01/30/2020 Laboratory Rachael Goldstein WARD MAID 12/23/2019 Office visit Rachael Goldstein WARD MAID 12/12/[address] Wiliam Emmanuel DO 11/07/2019 Laboratory Rachael Goldstein WARD MAID 10/24/2019 Laboratory Meghan Bowen APR N 10/10/2019 Office visit Rachael Goldstein WARD MAID
--- OUTSIDE RECORDS SUMMARY | 2020-05-30 10:31 | XMS REPORT ---
Author Author Sonia Emmanuel [facility] Address [address] [place], [place] [address] Care Team Providers Care Account Assistant Name Role Phone Wiliam Emmanuel PCP [...] Orals lozenge Chew one gummie once daily [place]-3 350 mg-235 mg- 90 mg-597 mg oral [...] type 2 Oct 10 2019 11 :40AM assisted (current) use of anticoagulants Oct 24 2019 11:02A M buttermaker helper use of anticoagulants Nov 07 2019 10:45AM Hyperlipidemia Dec 04 2019 4:16PM Rheumatoid arteritis Dec 04 2019 4:16PM Diabetes mellitus type 1.5, managed as type 2 Dec 04 2019 4 :16PM Mixed hyperlipidemia Dec 04 2019 4:16PM Acquired hypothyroidism Dec 04 2019 4:16PM Vitamin D deficiency Dec 04 2019 4:16PM assisted (current) use of anticoagulants Dec 12 2019 12:02P M Macular degeneration Dec 23 2019 10:48AM Edema Dec 23 2019 10:48AM History of DVT (deep vein thrombosis) Dec 23 2019 10:48AM Lupus Dec 23 2019 10:48AM Diabetes mellitus type 1.5, managed as type 2 Dec 23 2019 10 :48AM assisted (current) use of anticoagulants Jan 30 2020 10:55A M assisted (current) use of anticoagulants Mar 05 2020 11:05A M Payers Insurance Name Company Name Plan Name Plan Number Policy Number Wenceslao cy Group Number Start Date Medicare RH Medicare RHC [id number] N/ [facility] [id number] N/A Medicare Part A Medicare - Lab/Xray [id number] N/A History of Encounters Visit Date Visit Type Provider 03/05/[address] Wiliam Emmanuel DO 01/30/2020 Laboratory Rachael Goldstein SLIP COVER OPERATOR 12/23/2019 Office visit Rachael Goldstein SLIP COVER OPERATOR 12/12/[address] Wiliam Emmanuel DO 11/07/2019 Laboratory Rachael Goldstein SLIP COVER OPERATOR 10/24/2019 Laboratory Meghan Bowen APR N 10/10/2019 Office visit Rachael Goldstein APRN
--- OUTSIDE RECORDS SUMMARY | 2020-05-30 10:31 | XMS REPORT ---
Author Author Sonia Goldstein [facility] Address [address] [place], [place] [id number] Care Team Providers Care Head Buyer Tobacco Name Role Phone Rachael Goldstein PCP Allergies [...] Orals lozenge Chew one gummie once daily [place]-3 350 mg-235 mg- 90 mg-597 mg oral [...] Reviewed 01/30/2020 10:55 AM PROTHROMBIN TIME Reviewed Results Summary Date [...] AM PROTIME 32.0 secsINR 2.70 se cs History Of Immunizations Not available. [...] type 2 Oct 10 2019 11 :40AM ferry terminal agent (current) use of anticoagulants Oct 24 2019 11:02A M ferry terminal agent use of anticoagulants Nov 07 2019 10:45AM [...] Number Start Date Medicare RH Medicare RHC [id number] N/ A GE - [facility] [id number] N/A Medicare Part A Medicare - Lab/Xray [id number] N/A History of Encounters Visit Date Visit Type Provider 01/30/2020 Laboratory Rachael Goldstein HOUSEHOLD COORDINATOR 12/23/2019 Office visit Rachael Goldstein HOUSEHOLD COORDINATOR 12/12/[address] Wiliam Emmanuel DO 11/07/2019 Laboratory Rachael Goldstein HOUSEHOLD COORDINATOR 10/24/2019 Laboratory Meghan Bowen APR N 10/10/2019 Office visit Rachael Goldstein HOUSEHOLD COORDINATOR
--- OUTSIDE RECORDS SUMMARY | 2020-05-30 10:31 | XMS REPORT ---
Author Author Sonia Emmanuel [facility] Address [address] [place], [place] [address] Care Team Providers Care Job Placement Counselor Name Role Phone Wiliam Emmanuel PCP Allergies and Adverse Reactions Name Reaction Notes codeine sulfate Plan of Treatment Planned Activity Comments Planned Date Planned Time Plan/Goal CBC W/ AUTO DIFF (RFLX MAN DIFF IF IND). 12/04/2019 12:00 AM CMP 12/04/2019 12:00 AM TSH 12/04/2019 12:00 AM T4 12/04/2019 12:00 AM HGB A1C 12/04/2019 12:00 AM LIPID PANEL 12/04/2019 12:00 AM VITAMIN D (25 HYDROXY) 12/04/2019 12:00 AM Medications Active Name Start Date Estimated Completion [...] Orals lozenge Chew one gummie once daily [place]-3 350 mg-235 mg- 90 mg-597 mg oral [...] Reviewed 11/07/2019 10:45 AM PROTHROMBIN TIME Reviewed 12/12/2019 12:00 AM COLLECTION VENOUS BLOOD [...] type 2 Oct 10 2019 11 :40AM longterm (current) use of anticoagulants Oct 24 2019 11:02A M watermaster use of anticoagulants Nov 07 2019 10:45AM Hyperlipidemia Dec 04 2019 4:16PM Rheumatoid arteritis Dec 04 2019 4:16PM Diabetes mellitus type 1.5, managed as type 2 Dec 04 2019 4 :16PM Mixed hyperlipidemia Dec 04 2019 4:16PM Acquired hypothyroidism Dec 04 2019 4:16PM Vitamin D deficiency Dec 04 2019 4:16PM watermaster (current) use of anticoagulants Dec 12 2019 12:02P M Payers Insurance Name Company Name Plan Name Plan Number Policy Number Wenceslao cy Group Number Start Date Medicare RHC Medicare RHC [id number] N/ A [facility] [id number] N/A Medicare Part A Medicare - Lab/Xray [id number] N/A History of Encounters Visit Date Visit Type Provider 12/12/[address] Wiliam Emmanuel DO 11/07/2019 Laboratory Rachael Goldstein BAG LOADER 10/24/2019 Laboratory Meghan Bowen APR N 10/10/2019 Office visit Rachael Goldstein APRN
--- OUTSIDE RECORDS SUMMARY | 2020-05-30 10:31 | XMS REPORT ---
Author Author Sonia Goldstein [facility] Address [address] [place], [place] [address] Care Team Providers Care Supervisor Dry Cleaning Name Role Phone Rachael Goldstein PCP Allergies [...] Orals lozenge Chew one gummie once daily [place]-3 350 mg-235 mg- 90 mg-597 mg oral [...] Reviewed 12/23/2019 11:26 AM PROTHROMBIN TIME Reviewed Results Summary Date [...] type 2 Oct 10 2019 11 :40AM ad terminal makeup operator (current) use of anticoagulants Oct 24 2019 11:02A M ad terminal makeup operator use of anticoagulants Nov 07 2019 10:45AM Hyperlipidemia Dec 04 2019 4:16PM Rheumatoid arteritis Dec 04 2019 4:16PM Diabetes mellitus type 1.5, managed as type 2 Dec 04 2019 4 :16PM Mixed hyperlipidemia Dec 04 2019 4:16PM Acquired hypothyroidism Dec 04 2019 4:16PM Vitamin D deficiency Dec 04 2019 4:16PM ad terminal makeup operator (current) use of anticoagulants Dec 12 2019 12:02P M Macular degeneration Dec 23 2019 10:48AM Edema Dec 23 2019 10:48AM History of DVT (deep vein thrombosis) Dec 23 2019 10:48AM Lupus Dec 23 2019 10:48AM Diabetes mellitus type 1.5, managed as type 2 Dec 23 2019 10 :48AM Payers Insurance Name Company Name Plan Name Plan Number Policy Number Wenceslao cy Group Number Start Date Medicare [employer] [facility] Medicare [employer] [facility] [id number] N/ A JESSICA - [place] GE [id number] N/A Medicare Part A Medicare - Lab/Xray [id number] N/A History of Encounters Visit Date Visit Type Provider 12/23/2019 Office visit Rachael Goldstein MOLD CLEANING AND STORAGE SUPERVISOR 12/12/[address] Wiliam Emmanuel DO 11/07/2019 Laboratory Rachael Goldstein MOLD CLEANING AND STORAGE SUPERVISOR 10/24/2019 Laboratory Meghan Bowen APR N 10/10/2019 Office visit Rachael Goldstein APRN
--- OUTSIDE RECORDS SUMMARY | 2020-05-30 10:32 | XMS REPORT ---
Author Author Sonia Emmanuel [facility] Address [address] [place], [place] [address] Care Team Providers Care Behaviorist Name Role Phone Wiliam Emmanuel PCP Allergies [...] Orals lozenge Chew one gummie once daily [place]-3 350 mg-235 mg- 90 mg-597 mg oral [...] type 2 Oct 10 2019 11 :40AM long-term (current) use of anticoagulants Oct 24 2019 11:02A M ferry terminal agent use of anticoagulants Nov 07 2019 10:45AM Hyperlipidemia Dec 04 2019 4:16PM Rheumatoid arteritis Dec 04 2019 4:16PM Diabetes mellitus type 1.5, managed as type 2 Dec 04 2019 4 :16PM Mixed hyperlipidemia Dec 04 2019 4:16PM Acquired hypothyroidism Dec 04 2019 4:16PM Vitamin D deficiency Dec 04 2019 4:16PM ferry terminal agent (current) use of anticoagulants Dec 12 2019 12:02P M Payers Insurance Name Company Name Plan Name Plan Number Policy Number Wenceslao cy Group Number Start Date Medicare RHC Medicare RHC [id number] N/ A [facility] [id number] N/A Medicare Part A Medicare - Lab/Xray [id number] N/A History of Encounters Visit Date Visit Type Provider 12/12/[address] Wiliam Emmanuel DO 11/07/2019 Laboratory Rachael Goldstein HAT STEAMER 10/24/2019 Laboratory Meghan Bowen APR N 10/10/2019 Office visit Rachael Goldstein APRN
--- OUTSIDE RECORDS SUMMARY | 2020-05-30 10:32 | XMS REPORT | Continuity of Care Document ---
Demographics Preferred Language Unknown Marital Status Unknown Taoist Affiliation Unknown Race Unknown Ethnic Group Unknown Author Organization Unknown Address Unknown Phone Unavailable Allergies Active Description Code Type Severity Reaction Onset Reported/Identified Relationship to Patient Clinical Status Yes codeine [id number] Drug Allergy Unknown N/A 12/08/2017 Medications There is no data. Problems Date Dx Coded Attending Type Code Diagnosis Diagnosed By 12/08/2017 MEGAN HOLCOMB MD, Ot E11.9 TYPE 2 DIABETES MELLITUS WITHOUT COMPLIC 12/08/2017 MEGAN HOLCOMB MD, Ot E78.00 PURE HYPERCHOLESTEROLEMIA, UNSPECIFIED 12/08/2017 MEGAN HOLCOMB MD, Ot R40.2142 COMA SCALE, EYES OPEN, SPONTANEOUS, EMR 12/08/2017 MEGAN HOLCOMB MD, Ot R40.2252 COMA SCALE, BEST VERBAL RESPONSE, ORIENT 12/08/2017 MEGAN HOLCOMB MD, Ot R40.2362 COMA SCALE, BEST MOTOR RESPONSE, OBEYS C 12/08/2017 MEGAN HOLCOMB MD Ot S00.03XA CONTUSION OF SCALP, INITIAL ENCOUNTER 12/08/2017 MEGAN HOLCOMB MD Ot S06.0X0A CONCUSSION WITHOUT LOSS OF CONSCIOUSNESS 12/08/2017 MEGAN HOLCOMB MD Ot W22.09XA STRIKING AGAINST OTHER STATIONARY OBJECT 12/08/2017 MEGAN HOLCOMB MD Ot Z79.01 ORAL SURGEON (CURRENT) USE OF ANTICOAGULANT 12/08/2017 MEGAN HOLCOMB MD Ot Z86.718 PERSONAL HISTORY OF OTHER VENOUS THROMBO 12/08/2017 MEGAN HOLCOMB MD Ot Z88.5 ALLERGY STATUS TO NARCOTIC AGENT STATUS 12/08/2017 MEGAN HOCLOMB MD Ot Z90.710 ACQUIRED ABSENCE OF BOTH CERVIX AND UTER 12/08/2017 MEGAN HOLCOMB MD Ot Z90.89 ACQUIRED ABSENCE OF OTHER ORGANS 12/11/2017 MEGAN HOLCOMB MD Ot E11.9 TYPE 2 DIABETES MELLITUS WITHOUT COMPLIC 12/11/2017 MEGAN HOLCOMB MD Ot E78.00 PURE HYPERCHOLESTEROLEMIA, UNSPECIFIED 12/11/2017 MEGAN HOLCOMB MD Ot R40.2142 COMA SCALE, EYES OPEN, SPONTANEOUS, EMR 12/11/2017 MEGAN HOLCOMB MD, Ot R40.2252 COMA SCALE, BEST VERBAL RESPONSE, ORIENT 12/11/2017 MEGAN HOLCOMB MD, Ot R40.2362 COMA SCALE, BEST MOTOR RESPONSE, OBEYS C 12/11/2017 MEGAN HOLCOMB MD Ot S00.03XA CONTUSION OF SCALP, INITIAL ENCOUNTER 12/11/2017 MEGAN HOLCOMB MD Ot S06.0X0A CONCUSSION WITHOUT LOSS OF CONSCIOUSNESS 12/11/2017 MEGAN HOLCOMB MD Ot W22.09XA STRIKING AGAINST OTHER STATIONARY OBJECT 12/11/2017 MEGAN HOLCOMB MD Ot Z79.01 ORAL SURGEON (CURRENT) USE OF ANTICOAGULANT 12/11/2017 MEGAN HOLCOMB MD Ot Z86.718 PERSONAL HISTORY OF OTHER VENOUS THROMBO 12/11/2017 MEGAN HOLCOMB MD Ot Z88.5 ALLERGY STATUS TO NARCOTIC AGENT STATUS 12/11/2017 MEGAN HOLCOMB MD Ot Z90.710 ACQUIRED ABSENCE OF BOTH CERVIX AND UTER 12/11/2017 MEGAN HOLCOMB MD Ot Z90.89 ACQUIRED ABSENCE OF OTHER ORGANS 12/12/2019 S E039 Hypot hyroidism, unspecified 12/12/2019 P E139 Other specified diabetes mellitus without complications 12/12/2019 S E559 Vitam in D deficiency, unspecified 12/12/2019 S E782 Mixed hyperlipidemia Procedures There is no data. Results There is no data. Encounters ACCT No. Visit Date/Time Discharge Status Pt. Type Provider Facility Loc./Unit Complaint [id number] 12/12/2019 11:15:00 Document Registration [id number] 12/08/2017 16:07:00 018 18:04:00 DIS Emergency MEGAN HOLCOMB MD Via [facility] [address] ER HEAD INJ [id number] 05/30/2020 10:26:[address] Emergency PILAR PATEL MD Via [facility] ER AFIB [id number] 04/23/2020 11:58:11 04/23/2020 23:59: 59 CLS Outpatient Rachael Goldstein [id number] 04/09/2020 11:29:45 04/09/2020 23:59: 59 CLS Outpatient Rachael Goldstein [id number] 03/05/2020 11:54:09 03/05/2020 23:59: 59 CLS Outpatient Wiliam Emmanuel [id number] 01/30/2020 11:41:07 01/30/2020 23:59: 59 CLS Outpatient Rachael Goldstein [id number] 12/23/2019 11:36:36 12/23/2019 23:59: 59 CLS Outpatient Rachael Goldstein [id number] 12/12/2019 11:48:57 12/12/2019 23:59: 59 CLS Outpatient Noemiguru Wiliam [id number] 11/07/2019 11:38:53 11/07/2019 23:59: 59 CLS Outpatient Rachael Goldstein [id number] 10/24/2019 11:39:46 10/24/2019 23:59: 59 CLS Outpatient Jessi Meghan Lissa [id number] 10/10/2019 12:15:33 10/10/2019 23:59: 59 CLS Outpatient Rachael Goldstein [id number] 05/30/2020 09:26:27 ACT Outpatient Rachael Goldstein
--- OUTSIDE RECORDS SUMMARY | 2020-05-30 10:32 | XMS REPORT ---
Author Author Sonia Goldstein [facility] Address [address] [place], [place] [id number] Care Team Providers Care Milk House Worker Name Role Phone Rachael Goldstein PCP Allergies [...] Orals lozenge Chew one gummie once daily [place]-3 350 mg-235 mg- 90 mg-597 mg oral [...] Reviewed 11/07/2019 10:45 AM PROTHROMBIN TIME Reviewed Results Summary Date and Description Results 10/10/2019 12:31 PM PROTIME 20.90 secsINR 1.70 s ecs 10/24/2019 11:02 AM PROTIME 50.80 secsINR 4.20 s ecs 11/07/2019 10:45 AM PROTIME 35.20 secsINR 2.90 s ecs History Of Immunizations Not available. 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 [id number] N/A Medicare Part A Medicare - Lab/Xray [id number] N/A History of Encounters Visit Date Visit Type Provider 11/07/2019 Laboratory Rachael Goldstein APRN 10/24/2019 Laboratory Meghan Bowen APR N 10/10/2019 Office visit Rachael Goldstein APRN
--- OUTSIDE RECORDS SUMMARY | 2020-05-30 10:32 | XMS REPORT ---
Author Author Sonia Emmanuel [facility] Address [address] [place], [place] [id number] Care Team Providers Care Feed Mixer Name Role Phone Wiliam Emmanuel PCP Allergies [...] Orals lozenge Chew one gummie once daily [place]-3 350 mg-235 mg- 90 mg-597 mg oral [...] AM COLLECTION VENOUS BLOOD VENIPUNCTURE Rev iewed Results Summary Date and Description Results 10/10/2019 [...] type 2 Oct 10 2019 11 :40AM termination clerk (current) use of anticoagulants Oct 24 2019 11:02A M termination clerk use of anticoagulants Nov 07 2019 10:45AM [...] Number Start Date Medicare RHC Medicare RHC [id number] N/ A GE - [place] [facility] [id number] N/A Medicare Part A Medicare - Lab/Xray [id number] N/A History of Encounters Visit Date Visit Type Provider 12/12/[address] Wiliam Emmanuel DO 11/07/2019 Laboratory Rachael Goldstein LEARNING COACH 10/24/2019 Laboratory Meghan Bowen APR N 10/10/2019 Office visit Rachael Goldstein LEARNING COACH
[2020-05-30 10:49] LABS: BASOPHILS % (AUTO) 1 % (0-10); EOSINOPHILS # (AUTO) 0.3 10^3/uL (0.0-0.3); EOSINOPHILS % (AUTO) 5 % (0-10); HEMATOCRIT 39 % (35-52); HEMOGLOBIN 13.1 G/DL (11.5-16.0); LYMPHOCYTES # (AUTO) 1.5 X 10^3 (1.0-4.0); LYMPHOCYTES % (AUTO) 28 % (12-44); MEAN CORPUSCULAR HEMOGLOBIN 30 PG (25-34); MEAN CORPUSCULAR HGB CONC 34 G/DL (32-36); MEAN CORPUSCULAR VOLUME 89 FL (80-99); MEAN PLATELET VOLUME 10.2 FL (7.4-10.4); MONOCYTES # (AUTO) 0.6 X 10^3 (0.0-1.0); MONOCYTES % (AUTO) 11 % (0-12); NEUTROPHILS % (AUTO) 55 % (42-75); PLATELET COUNT 246 10^3/uL (130-400); RED CELL DISTRIBUTION WIDTH 14.4 % (10.0-14.5); WHITE BLOOD COUNT 5.5 10^3/uL (4.3-11.0)
[2020-05-30 11:05] LABS: PROTHROMBIN TIME PATIENT 22.8 SEC (12.2-14.7)
--- NOTE | 2020-05-30 11:06 | Diagnostic Imaging Report ---
EXAMINATION: Chest 1 view HISTORY: Chest pain COMPARISON: None available. FINDINGS: The lungs are clear without edema or pneumonia. No pleural effusion or pneumothorax. Heart size is normal. IMPRESSION: 1. Clear lungs. Dictated by: Dictated on workstation # [id number]
[2020-05-30 11:14] LABS: ALANINE AMINOTRANSFERASE 17 U/L (0-55); ALBUMIN 4.3 GM/DL (3.2-4.5); ALKALINE PHOSPHATASE 53 U/L (40-136); BILIRUBIN,TOTAL 1.2 MG/DL (0.1-1.0); BUN/CREATININE RATIO 16; CALCIUM 9.8 MG/DL (8.5-10.1); CARBON DIOXIDE 23 MMOL/L (21-32); CHLORIDE 100 MMOL/L (98-107); CREATININE SERUM 0.61 MG/DL (0.60-1.30); GFR ESTIMATED > 60; GLUCOSE 107 MG/DL (70-105); POTASSIUM 3.7 MMOL/L (3.6-5.0); SODIUM 135 MMOL/L (135-145); TOTAL PROTEIN 6.7 GM/DL (6.4-8.2)
[2020-05-30] MEDS ORDERED: meTOproloL SUCCINATE 50 MG (TOPROL XL) TAB PO SCH (12:45)
[2020-05-30] MEDS ORDERED: METO100T6 PO (13:16)
--- NOTE | 2020-05-30 13:19 | ED Cardiac General ---
History of Present Illness General Chief Complaint: Cardiac/General Problems Stated Complaint: AFIB Nursing Triage Note: PT TO RM 7 BY WHEELCHAIR WITH COMPLAINT OF IRREGULAR HEARTRATE. PT STATES SHE WAS FEELING FLUTTERING LAST NIGHT. STATES WENT TO PCP TODAY AND WAS INSTRUCTED TO GO TO ER FOR POSSIBLE AFIB. PT DENIES HX OF AFIB. HAS BEEN ON LONG-TERM BLOOD THINNERS DUE TO HX OF BLOOD CLOTS. DENIES CP OR SOA. Source: patient, old records Exam Limitations: no limitations History of Present Illness Date Seen by Provider: May 30, 2020 Time Seen by Provider: 10:41 Initial Comments This 74-year-old woman presents to the emergency room for evaluation of irregular heart rate. She reports symptoms started yesterday when she felt a fluttering in her chest. She took a pulse ox measurement with a pulse oximeter she has at home. She reports heart rate ranged from 40-140. She was feeling lightheaded at the time. Symptoms resolved but she woke again around midnight with a similar sensation and heart rate ranging from 31-151. Symptoms returned again this morning at around 07:00. She saw her nurse practitioner in [place] and was referred to the emergency room. By the time of her arrival she was in sinus rhythm with a rate in the 80s. She was asymptomatic. Patient is presently on warfarin therapy due to history of bilateral lower extremity DVTs. Allergies and Home Medications Allergies Coded Allergies: codeine (Verified Allergy, Unknown, 12/08/17) Home Medications Metoprolol Succinate 100 Mg Tab.er.24h, 100 MG PO DAILY Prescribed by: PILAR VELASCO on 05/30/20 1316 Patient Home Medication List Home Medication List Reviewed: Yes Review of Systems Review of Systems Constitutional: no symptoms reported Respiratory: No Symptoms Reported Cardiovascular: See HPI Gastrointestinal: No Symptoms Reported Genitourinary: No Symptoms Reported Musculoskeletal: no symptoms reported Skin: no symptoms reported Psychiatric/Neurological: No Symptoms Reported Endocrine: No Symptoms Reported Past Epdhudz-Rbkthu-Lomrjz Hx Past Med/Social Hx: Reviewed Nursing Past Med/Soc Hx Patient Social History Alcohol Use: Rarely Uses Recreational Drug Use: No Smoking Status: Never a Smoker Recent Foreign Travel: No Contact w/Someone Who Travel: No Recent Infectious Disease Expo: No Immunizations Up To Date Tetanus Booster (TDap): Unknown PED Vaccines UTD: Yes Past Medical History Surgeries: Yes Adenoidectomy, Gallbladder, Hysterectomy, Orthopedic, Tonsillectomy Respiratory: No Cardiac: Yes Deep Vein Thrombosis, High Cholesterol Neurological: No Genitourinary: No Gastrointestinal: No Musculoskeletal: Yes Arthritis Endocrine: Yes Diabetes, Non-Insulin dep HEENT: Yes Macular Degeneration Cancer: No Family Medical History No Pertinent Family Hx Physical Exam Vital Signs Vital Signs - First Documented 05/30/20 10:27 Temp 37.2 Pulse 88 Resp 22 B/P (MAP) 143/75 (97) Pulse Ox 95 O2 Delivery Room Air Capillary Refill : Less Than 3 Seconds Height, Weight, BMI Height: 5'7.00" Weight: 270lbs. oz. 122.588058si; 45.00 BMI Method:Stated General Appearance: No Apparent Distress, WD/WN, Obese HEENT: PERRL/EOMI, Normal ENT Inspection Neck: Normal Inspection; No JVD Respiratory: Lungs Clear, Normal Breath Sounds, No Accessory Muscle Use, No Respiratory Distress Cardiovascular: Regular Rate, Rhythm, No Murmur, Other (Chronic lower extremity edema and skin changes stated as secondary to history of DVTs) Gastrointestinal: Normal Bowel Sounds, Non Tender, Soft Extremity: Non Tender, Other (Chronic lower extremity edema and skin changes stated as secondary to history of DVTs) Neurologic/Psychiatric: Alert, Oriented x3, No Motor/Sensory Deficits, Normal Mood/Affect Skin: Normal Color, Warm/Dry Progress/Results/Core Measures Results/Orders Lab Results Laboratory Tests Test 05/30/20 10:33 Range/Units White Blood Count 5.5 4.3-11.0 10^3/uL Red Blood Count 4.33 L 4.35-5.85 10^6/uL Hemoglobin 13.1 11.5-16.0 G/DL Hematocrit 39 35-52 % Mean Corpuscular Volume 89 80-99 FL Mean Corpuscular Hemoglobin 30 25-34 PG Mean Corpuscular Hemoglobin Concent 34 32-36 G/DL Red Cell Distribution Width 14.4 10.0-14.5 % Platelet Count 246 130-400 10^3/uL Mean Platelet Volume 10.2 7.4-10.4 FL Neutrophils (%) (Auto) 55 42-75 % Lymphocytes (%) (Auto) 28 12-44 % Monocytes (%) (Auto) 11 0-12 % Eosinophils (%) (Auto) 5 0-10 % Basophils (%) (Auto) 1 0-10 % Neutrophils # (Auto) 3.0 1.8-7.8 X 10^3 Lymphocytes # (Auto) 1.5 1.0-4.0 X 10^3 Monocytes # (Auto) 0.6 0.0-1.0 X 10^3 Eosinophils # (Auto) 0.3 0.0-0.3 10^3/uL Basophils # (Auto) 0.0 0.0-0.1 10^3/uL Prothrombin Time 22.8 H 12.2-14.7 SEC INR Comment 2.0 H 0.8-1.4 Activated Partial Thromboplast Time 39 H 24-35 SEC Sodium Level 135 135-145 MMOL/L Potassium Level 3.7 3.6-5.0 MMOL/L Chloride Level 100 98-107 MMOL/L Carbon Dioxide Level 23 21-32 MMOL/L Anion Gap 12 5-14 MMOL/L Blood Urea Nitrogen 10 7-18 MG/DL Creatinine 0.61 0.60-1.30 MG/DL Estimat Glomerular Filtration Rate > 60 BUN/Creatinine Ratio 16 Glucose Level 107 H 70-105 MG/DL Calcium Level 9.8 8.5-10.1 MG/DL Corrected Calcium 9.6 8.5-10.1 MG/DL Magnesium Level 2.0 1.6-2.4 MG/DL Total Bilirubin 1.2 H 0.1-1.0 MG/DL Aspartate Amino Transf (AST/SGOT) 18 5-34 U/L Alanine Aminotransferase (ALT/SGPT) 17 0-55 U/L Alkaline Phosphatase 53 40-136 U/L Myoglobin 41.0 10.0-92.0 NG/ML Troponin I < 0.028 <0.028 NG/ML Total Protein 6.7 6.4-8.2 GM/DL Albumin 4.3 3.2-4.5 GM/DL TSH [place] Testing 2.10 0.35-4.94 UIU/ML My Orders Orders - PILAR PATEL MD Cbc With Automated Diff (05/30/20 10:42) Magnesium (05/30/20 10:42) Chest 1 View, Ap/Pa Only (05/30/20 10:42) Ekg Tracing (05/30/20 10:42) Comprehensive Metabolic Panel (05/30/20 10:42) Myoglobin Serum (05/30/20 10:42) Protime With Inr (05/30/20 10:42) Partial Thromboplastin Time (05/30/20 10:42) O2 (05/30/20 10:42) Monitor-Rhythm Ecg Trace Only (05/30/20 10:42) Ed Iv/Invasive Line Start (05/30/20 10:42) Troponin I (05/30/20 10:42) Thyroid Analyzer (05/30/20 10:42) Metoprolol Succinate (Xl) Tab (Toprol Xl (05/30/20 12:45) Vital Signs/I&O 05/30/20 05/30/20 10:27 13:46 Temp 37.2 Pulse 88 74 Resp 22 16 B/P (MAP) 143/75 (97) 110/68 Pulse Ox 95 98 O2 Delivery Room Air Room Air Blood Pressure Mean: 97 Progress Progress Note : Progress Note Workup was essentially unremarkable. Patient remained in sinus rhythm throughout her ER stay. I discussed the case with Dr. Villasenor. He recommended starting Toprol-XL 100 mg daily with the first dose now. This was administered and patient was observed for at least 30 minutes afterward. She tolerated the medication well. Dr. Villasenor was concerned about the quantity of diuretics the patient takes and he recommended stopping chlorthalidone and halving the spironolactone and furosemide. Patient's INR was 2.0 so she is currently appropriately anticoagulated. Patient feels comfortable returning home and was discharged. Initial ECG Impression Date: May 30, 2020 Initial ECG Impression Time: 10:30 Initial ECG Rate: 84 Initial ECG Rhythm: Normal Sinus Initial ECG Impression: Normal Comment Normal sinus rhythm with no ST elevation or depression. One PVC noted. No abnormal intervals or axis deviation. Diagnostic Imaging Diagonstic Imaging: Xray Plain Films/CT/US/NM/MRI: chest Comments Chest x-ray viewed by me and report reviewed. See report below: NAME: SU PATEL [facility] REC#: [id number] PT STATUS: REG ER : 1945 PHYSICIAN: PILAR PATEL MD ADMIT DATE: 05/30/20/ER Signed Date of Exam:05/30/20 CHEST 1 VIEW, AP/PA ONLY EXAMINATION: Chest 1 view HISTORY: Chest pain COMPARISON: None available. FINDINGS: The lungs are clear without edema or pneumonia. No pleural effusion or pneumothorax. Heart size is normal. IMPRESSION: 1. Clear lungs. Dictated by: Dictated on workstation # [id number] Dict: 05/30/20 1105 Trans: 05/30/20 1105 [facility] [id number] Interpreted by: DOYLE BORGES MD Electronically signed by: DOYLE BORGES MD 05/30/20 1105 Departure Impression Primary Impression: Arrhythmia Qualified Codes: I49.9 - Cardiac arrhythmia, unspecified Disposition: HOME, SELF-CARE Condition: Improved Departure-Patient Inst. Decision time for Depature: 13:15 Referrals: YAYA VILLASENOR MD [facility] UNKNOWN (PCP) Primary Care Physician Patient Instructions: Atrial Fibrillation Add. Discharge Instructions: Start Toprol-XL as prescribed tomorrow morning. Reduce your furosemide (Lasix) to 40 mg daily. Reduce your spironolactone to 25 mg daily. Stop chlorthalidone. Continue all your other medications. If you have persistent irregular or rapid heart rate that continues more than 30 minutes, or if you have of irregular heart rate associated with other symptoms such as lightheadedness, chest pain, shortness of breath, etc., return to the emergency room. Call Dr. Villasenor's office first thing on Monday for a follow-up appointment. He would like to see you in the clinic on Monday. Call or return to care if you have any further questions or concerns. All discharge instructions reviewed with patient and/or family. Voiced understanding. Scripts Metoprolol Succinate (Toprol Xl) 100 Mg Tab.er.24h 100 MG PO DAILY, #30 TAB Prov: PILAR PATEL MD 05/30/20 Copy Copies To 1: YAYA VILLASENOR MD [facility] PILAR PATEL MD May 30, 2020 13:18
[2020-05-30 13:46] VITALS: BP 110/68
== END 2020-05-30 13:46 | disposition home or self-care (01) ==
LOC: EDUNIT# 10:24 → ER 10:26
DX: I49.9 Cardiac arrhythmia, unspecified (principal); E11.9 Type 2 diabetes mellitus without complications; Z79.01 Long term (current) use of anticoagulants; Z86.718 Personal history of other venous thrombosis and embolism; Z88.5 Allergy status to narcotic agent
CPT/HCPCS: 36415; 71045; 80053; 83735; 83874; 84443; 84484; 85025; 85610; 85730; 93005; 93041

== ENCOUNTER → 2020-06-08 | Outpatient (CLI) | payer MEDICARE, OTHER ==
[~2020-06-08] MED LIST: METO100T6 PO
== END ==
LOC: CARD 10:03
PROVIDERS: ATTEND Internal Medicine Cardiovascular Disease
DX: I07.1 Rheumatic tricuspid insufficiency (principal); I48.0 Paroxysmal atrial fibrillation; E11.9 Type 2 diabetes mellitus without complications; E66.9 Obesity, unspecified; I51.7 Cardiomegaly; Z86.2 Personal history of diseases of the blood and blood-forming organs and certain disorders involving the immune mechanism; Z86.718 Personal history of other venous thrombosis and embolism
CPT/HCPCS: 93225; 93226; 93306

== ENCOUNTER → 2020-06-09 | Outpatient (CLI) | payer MEDICARE, OTHER ==
[~2020-06-09] VITALS: Ht 170 cm; Wt 140.0 kg
[~2020-06-09] MED LIST changes: +CATHETER FLUSH 10 ML SYR IV PRN; +REGADENOSON 0.4 MG/5 ML SYR (LEXISCAN) IV ONE
--- NOTE | 2020-06-10 20:50 | STRESS TEST ---
DATE OF SERVICE: RESTING AND POST REGADENOSON TECHNETIUM-99M TETROFOSMIN SPECT CT IMAGING PRIMARY PHYSICIAN: Dr. Villasenor. CLINICAL DIAGNOSES: Palpitations, diabetes. Baseline images were carried out after injection of 10.33 mCi of technetium-99m Tetrofosmin. This was followed by 0.4 mg Regadenoson and 32.6 mCi of technetium-99m Tetrofosmin for stress imaging. The electrocardiogram showed sinus rhythm at baseline. The electrocardiogram demonstrates considerable baseline artifact. Atrial rhythm appears to be sinus. The electrocardiogram did not change significantly with Regadenoson infusion. Review of images at rest and following stress does not indicate significant perfusion defects consistent with myocardial ischemia or infarction. Gated images show normal global left ventricular systolic function with normal regional wall motion. Left ventricular ejection fraction is calculated to be 65%. Left ventricular end diastolic volume is 83 mL. TID is absent (1.17). CONCLUSIONS: 1. No evidence of significant myocardial ischemia or infarction. 2. Normal regional wall motion. 3. Normal global left ventricular systolic function with a calculated ejection fraction of 65%. Job ID: [id number] DocumentID: [id number] Dictated Date: 06/10/2020 13:05:23 Brick Kiln Worker Date: 06/10/2020 13:49:17 Dictated By: AYYA VILLASENOR MD, MA, FACP, FACC, MTDD
== END ==
LOC: CARD 10:57
PROVIDERS: ATTEND Internal Medicine Cardiovascular Disease
DX: I48.0 Paroxysmal atrial fibrillation (principal); E11.9 Type 2 diabetes mellitus without complications; E66.09 Other obesity due to excess calories; Z86.2 Personal history of diseases of the blood and blood-forming organs and certain disorders involving the immune mechanism; Z86.718 Personal history of other venous thrombosis and embolism
CPT/HCPCS: 78452; 93017; A9502

== ENCOUNTER 2020-12-11 18:26 | Emergency (ER) | payer MEDICARE, OTHER ==
[~2020-12-11] VITALS: Ht 170 cm; Wt 136.0 kg
[~2020-12-11 18:26] MED LIST changes: -CATHETER FLUSH 10 ML SYR IV PRN; -REGADENOSON 0.4 MG/5 ML SYR (LEXISCAN) IV ONE
--- NOTE | 2020-12-11 18:43 | ED Cardiac General ---
History of Present Illness General Chief Complaint: Cardiac/General Problems Stated Complaint: HIGH HEART RATE Nursing Triage Note: ARRIVED VIA WC TO ROOM 05 WITH COMPLAINTS OF TACHYCARDIA STARTING AROUND 1530. STATES SHE WAS DIZZY WHEN IT STARTED. Source: patient, spouse Exam Limitations: no limitations History of Present Illness Date Seen by Provider: Dec 11, 2020 Time Seen by Provider: 18:32 Initial Comments Patient presents ER by private conveyance from home with her spouse and chief complaint she is having racing heart rate and feeling of lightheadedness when she stands up since about 4:00 this afternoon. She had this episode once before 6 months ago when she had a bout of atrial fibrillation with rapid ventricular response and was introduced to Dr. Guzman. She denies other heart disease but sh e takes metoprolol succinate 100 mg which she took about 7:00 this morning as well as 40 mg furosemide daily and lisinopril. She has not passed out and is not having any pain anywhere. No nausea vomiting sweats or paresthesias. She denies a history of coronary disease smoking or diabetes. She says her symptoms have gone away by the time she arrived to the ER. Stress test May 2020, [address] Villasenor without evidence of a significant myocardial ischemia or infarction and an EF of 65%. Allergies and Home Medications Allergies Coded Allergies: codeine (Verified Allergy, Unknown, 12/08/17) Home Medications Metoprolol Succinate 100 Mg Tab.er.24h, 100 MG PO DAILY Prescribed by: PILAR VELASCO on 05/30/20 1316 Patient Home Medication List Home Medication List Reviewed: Yes Review of Systems Review of Systems Constitutional: No chills, No fever, No malaise EENTM: No Blurred Vision, No Double Vision Respiratory: Denies Cough, Denies Shortness of Air Cardiovascular: Denies Chest Pain, Denies Lightheadedness Gastrointestinal: Denies Abdominal Pain, Denies Constipated, Denies Diarrhea, Denies Nausea Genitourinary: Denies Burning, Denies Drainage Musculoskeletal: No back pain, No gout All Other Systems Reviewed Negative Unless Noted: Yes Past Pypcgnm-Jokpeb-Csuvqs Hx Patient Social History Alcohol Use: Denies Use Smoking Status: Never a Smoker Recent Infectious Disease Expo: No Immunizations Up To Date Tetanus Booster (TDap): Unknown PED Vaccines UTD: Yes Past Medical History Surgeries: Yes Adenoidectomy, Gallbladder, Hysterectomy, Orthopedic, Tonsillectomy Respiratory: No Cardiac: Yes Deep Vein Thrombosis, High Cholesterol Neurological: No Genitourinary: No Gastrointestinal: No Musculoskeletal: Yes Arthritis Endocrine: Yes Diabetes, Non-Insulin dep HEENT: Yes Macular Degeneration Cancer: No Family Medical History No Pertinent Family Hx Physical Exam Vital Signs Vital Signs - First Documented 12/11/20 18:34 Temp 36.7 Pulse 104 Resp 16 B/P (MAP) 130/116 (121) Pulse Ox 99 O2 Delivery Room Air Capillary Refill : Less Than 3 Seconds Height, Weight, BMI Height: 5'7.00" Weight: 270lbs. oz. 122.272763mc; 47.00 BMI Method:Stated General Appearance: Chronically ill, Obese HEENT: PERRL/EOMI, Pharynx Normal, Moist Mucous Membranes Neck: Normal Inspection, Non Tender Respiratory: Lungs Clear, Normal Breath Sounds, No Accessory Muscle Use, No Respiratory Distress Cardiovascular: Regular Rate, Rhythm, No Edema, Normal Peripheral Pulses Extremity: Normal Capillary Refill, Other (Chronic lymphedema bilateral lower extremities without significant erythema or tenderness on palpation) Neurologic/Psychiatric: Alert, Oriented x3, No Motor/Sensory Deficits Skin: Normal Color, Warm/Dry Progress/Results/Core Measures Results/Orders Lab Results Laboratory Tests Test 12/11/20 18:40 12/11/20 18:45 Range/Units White Blood Count 5.5 4.3-11.0 10^3/uL Red Blood Count 4.73 3.80-5.11 10^6/uL Hemoglobin 13.7 11.5-16.0 g/dL Hematocrit 42 35-52 % Mean Corpuscular Volume 89 80-99 fL Mean Corpuscular Hemoglobin 29 25-34 pg Mean Corpuscular Hemoglobin Concent 32 32-36 g/dL Red Cell Distribution Width 14.9 H 10.0-14.5 % Platelet Count 234 130-400 10^3/uL Mean Platelet Volume 10.2 9.0-12.2 fL Immature Granulocyte % (Auto) 0 % Neutrophils (%) (Auto) 56 42-75 % Lymphocytes (%) (Auto) 27 12-44 % Monocytes (%) (Auto) 11 0-12 % Eosinophils (%) (Auto) 5 0-10 % Basophils (%) (Auto) 1 0-10 % Neutrophils # (Auto) 3.1 1.8-7.8 10^3/uL Lymphocytes # (Auto) 1.5 1.0-4.0 10^3/uL Monocytes # (Auto) 0.6 0.0-1.0 10^3/uL Eosinophils # (Auto) 0.3 0.0-0.3 10^3/uL Basophils # (Auto) 0.1 0.0-0.1 10^3/uL Immature Granulocyte # (Auto) 0.0 0.0-0.1 10^3/uL Prothrombin Time 25.0 H 12.2-14.7 SEC INR Comment 2.2 H 0.8-1.4 Activated Partial Thromboplast Time 41 H 24-35 SEC Sodium Level 139 135-145 MMOL/L Potassium Level 4.3 3.6-5.0 MMOL/L Chloride Level 99 98-107 MMOL/L Carbon Dioxide Level 27 21-32 MMOL/L Anion Gap 13 5-14 MMOL/L Blood Urea Nitrogen 16 7-18 MG/DL Creatinine 0.71 0.60-1.30 MG/DL Estimat Glomerular Filtration Rate > 60 BUN/Creatinine Ratio 23 Glucose Level 112 H 70-105 MG/DL Calcium Level 9.7 8.5-10.1 MG/DL Corrected Calcium 9.4 8.5-10.1 MG/DL Total Bilirubin 1.0 0.1-1.0 MG/DL Aspartate Amino Transf (AST/SGOT) 16 5-34 U/L Alanine Aminotransferase (ALT/SGPT) 16 0-55 U/L Alkaline Phosphatase 54 40-136 U/L Troponin I < 0.028 <0.028 NG/ML B-Type Natriuretic Peptide 63.5 <100.0 PG/ML Total Protein 7.5 6.4-8.2 GM/DL Albumin 4.4 3.2-4.5 GM/DL Urine Color YELLOW Urine Clarity CLEAR Urine pH 8.0 5-9 Urine Specific [place] 1.015 L 1.016-1.022 Urine Protein NEGATIVE NEGATIVE Urine Glucose (UA) NEGATIVE NEGATIVE Urine Ketones NEGATIVE NEGATIVE Urine Nitrite NEGATIVE NEGATIVE Urine Bilirubin NEGATIVE NEGATIVE Urine Urobilinogen 0.2 < = 1.0 MG/DL Urine Leukocyte Esterase NEGATIVE NEGATIVE Urine RBC (Auto) NEGATIVE NEGATIVE Urine RBC NONE /HPF Urine WBC NONE /HPF Urine Crystals PRESENT H /LPF Urine Amorphous Sediment FEW GAVIN PHOSPHATE H /LPF Urine Bacteria FEW H /HPF Urine Casts NONE /LPF Urine Mucus NEGATIVE /LPF Urine Culture Indicated NO My Orders Orders - MIGUEL GARRETT Troponin I (12/11/20 18:40) Chest 1 View, Ap/Pa Only (12/11/20 18:40) Ekg Tracing (12/11/20 18:40) Ed Iv/Invasive Line Start (12/11/20 18:40) Monitor-Rhythm Ecg Trace Only (12/11/20 18:40) Cbc With Automated Diff (12/11/20 18:40) Comprehensive Metabolic Panel (12/11/20 18:40) Ua Culture If Indicated (12/11/20 18:40) Protime With Inr (12/11/20 18:40) Partial Thromboplastin Time (12/11/20 18:40) BNP (12/11/20 18:43) Vital Signs/I&O 12/11/20 18:34 Temp 36.7 Pulse 104 Resp 16 B/P (MAP) 130/116 (121) Pulse Ox 99 O2 Delivery Room Air Blood Pressure Mean: 121 Progress Progress Note #1: Time: 18:46 Progress Note Initial EKG shows atrial fibrillation in the 80-90 range. Seems to be rate controlled at this time. We will keep her on the monitor and obtained some labs including troponin BnP, UA and a chest x-ray. If her heart rate gets out of control we would consider a dose of metoprolol IV. Initial blood pressure is elevated so we will give her some time to see what this does after she has a chance to go to the bathroom on the bedside commode. Progress Note #2: Time: 19:40 Progress Note The patient had no deterioration in her symptoms or signs since she arrived. She is not having any chest pain shortness of air or weakness. She is not experiencing any palpitations and her heart rate has remained around 9010 in atrial fibrillation. Initial ECG Impression Date: Dec 11, 2020 Initial ECG Impression Time: 18:35 Initial ECG Rate: 84 Initial ECG Rhythm: A Fib/Flutter Initial ECG Intervals: QT (398) Initial ECG Impression: Atrial Fibrillation Comment Atrial fibrillation without rapid ventricular response. No clinically relevant ST changes. Diagnostic Imaging Diagonstic Imaging: Xray Plain Films/CT/US/NM/MRI: chest Comments No acute cardiopulmonary process on 1 view chest x-ray. [facility], [facility]. [place], [place] NAME: SU PATEL [facility] REC#: [id number] PT STATUS: REG ER : 1945 PHYSICIAN: MIGUEL GARRETT MD ADMIT DATE: 12/11/20/ER Signed Date of Exam:12/11/20 CHEST 1 VIEW, AP/PA ONLY INDICATION: Chest pain. COMPARISON: 05/30/2020. EXAMINATION: Single view of the chest. FINDINGS: Stable cardiac enlargement. The lungs are clear. There is no pneumothorax. Osseous structures are stable. IMPRESSION: Stable cardiac enlargement without pulmonary edema or acute infiltrate. Dictated by: Dictated on workstation # [id number] Dict: 12/11/201852 Trans: 12/11/201857 PJE [id number] Interpreted by: MINA HORNER Electronically signed by: MINA HORNER 12/11/201857 Reviewed: Reviewed by Me Consults : Consulting Physician: Remington BLAKE MD Consults Notes Discussed the case with cardiology and since her heart rate has been rate controlled since she arrived he would recommend she just follow-up Monday with her primary care doctor. He would also be okay with sending her home with a prescription for some metoprolol tartrate 50 mg to be taken 1 extra per day if she is having rapid heart rate between now and seeing her doctor next week. Departure Impression Primary Impression: PAF (paroxysmal atrial fibrillation) Disposition: HOME, SELF-CARE Condition: Stable Departure-Patient Inst. Decision time for Depature: 19:37 Referrals: YAYA VILLASENOR MD FACP FACC CCDS NO,LOCAL PHYSICIAN (PCP) Primary Care Physician Patient Instructions: Atrial Fibrillation (DC) Add. Discharge Instructions: You are experiencing a rapid heart rate due to your atrial fibrillation. This will come and go periodically. When it starts causing trouble like today then it needs further evaluation by your heart doctor in the clinic. Call Dr. Villasenor on Monday and make a close follow-up appointment next week. Continue taking all of your other medications as prescribed. If you have another episode where your heart rate shoots up above 130 and stays there then you can take 2 tablets (2 x 25mg) of metoprolol tartrate (50 mg/day) in addition to your other medications. If this does not resolve your palpitations over the next hour or 2 then you should return to the nearest ER. At any time you experience chest pain, significant shortness of air or other worrisome symptoms then you should return to the ER for further evaluation. All discharge instructions reviewed with patient and/or family. Voiced understanding. Scripts Metoprolol Tartrate (Metoprolol Tartrate) 25 Mg Tablet 50 MG PO DAILY PRN for heart rate over 130 for 7 Days, #7 TAB 0 Refills Prov: MIGUEL GARRETT 12/11/20 Copy Copies To 1: YAYA VILLASENOR MD FACP FAC CCDS MIGUEL GARRETT Dec 11, 2020 18:43
[2020-12-11 18:50] LABS: BASOPHILS # (AUTO) 0.1 10^3/uL (0.0-0.1); BASOPHILS % (AUTO) 1 % (0-10); EOSINOPHILS # (AUTO) 0.3 10^3/uL (0.0-0.3); EOSINOPHILS % (AUTO) 5 % (0-10); HEMATOCRIT 42 % (35-52); HEMOGLOBIN 13.7 g/dL (11.5-16.0); LYMPHOCYTES # (AUTO) 1.5 10^3/uL (1.0-4.0); LYMPHOCYTES % (AUTO) 27 % (12-44); MEAN CORPUSCULAR HEMOGLOBIN 29 pg (25-34); MEAN CORPUSCULAR HGB CONC 32 g/dL (32-36); MEAN CORPUSCULAR VOLUME 89 fL (80-99); MEAN PLATELET VOLUME 10.2 fL (9.0-12.2); MONOCYTES # (AUTO) 0.6 10^3/uL (0.0-1.0); MONOCYTES % (AUTO) 11 % (0-12); NEUTROPHILS # (AUTO) 3.1 10^3/uL (1.8-7.8); NEUTROPHILS % (AUTO) 56 % (42-75); PLATELET COUNT 234 10^3/uL (130-400); WHITE BLOOD COUNT 5.5 10^3/uL (4.3-11.0)
[2020-12-11 18:52] LABS: BILIRUBIN,URINE NEGATIVE (NEGATIVE); CLARITY,URINE CLEAR; COLOR,URINE YELLOW; GLUCOSE, URINE (UA) NEGATIVE (NEGATIVE); KETONES,URINE NEGATIVE (NEGATIVE); LEUKOCYTE ESTERASE ,URINE NEGATIVE (NEGATIVE); NITRITE,URINE NEGATIVE (NEGATIVE); PROTEIN,URINE NEGATIVE (NEGATIVE)
[2020-12-11 18:55] LABS: ALBUMIN 4.4 GM/DL (3.2-4.5)
[2020-12-11 18:56] LABS: CHLORIDE 99 MMOL/L (98-107); POTASSIUM 4.3 MMOL/L (3.6-5.0); SODIUM 139 MMOL/L (135-145)
--- NOTE | 2020-12-11 18:56 | Diagnostic Imaging Report ---
INDICATION: Chest pain. COMPARISON: 05/30/2020. EXAMINATION: Single view of the chest. FINDINGS: Stable cardiac enlargement. The lungs are clear. There is no pneumothorax. Osseous structures are stable. IMPRESSION: Stable cardiac enlargement without pulmonary edema or acute infiltrate. Dictated by: Dictated on workstation # [id number]
[2020-12-11 18:57] LABS: CALCIUM 9.7 MG/DL (8.5-10.1); INR 2.2 (0.8-1.4)
[2020-12-11 18:58] LABS: GLUCOSE 112 MG/DL (70-105); TOTAL PROTEIN 7.5 GM/DL (6.4-8.2)
[2020-12-11 18:59] LABS: CARBON DIOXIDE 27 MMOL/L (21-32)
[2020-12-11 19:02] LABS: ALKALINE PHOSPHATASE 54 U/L (40-136); CREATININE SERUM 0.71 MG/DL (0.60-1.30); GFR ESTIMATED > 60
[2020-12-11 19:03] LABS: BUN/CREATININE RATIO 23
[2020-12-11 19:05] LABS: ALANINE AMINOTRANSFERASE 16 U/L (0-55)
[2020-12-11 19:18] LABS: BACTERIA,URINE FEW /HPF
[2020-12-11 19:19] LABS: AMORPHOUS SEDIMENT,UR FEW AMOR PHOSPHATE /LPF
[2020-12-11] MEDS ORDERED: METO-333 PO (19:40)
[2020-12-11] MEDS ORDERED: meTOprolol TARTRATE 25 MG (LOPRESSOR) TABLET ONE (19:40)
[2020-12-11] MEDS ORDERED: meTOprolol TARTRATE 25 MG (LOPRESSOR) TABLET PO ONE (19:45)
[2020-12-11 19:46] VITALS: BP 151/84
== END 2020-12-11 19:49 | disposition home or self-care (01) ==
LOC: EDUNIT# 18:26 → ER 18:27
DX: I48.0 Paroxysmal atrial fibrillation (principal); E66.9 Obesity, unspecified; Z68.42 Body mass index [BMI] 45.0-49.9, adult; Z88.5 Allergy status to narcotic agent
CPT/HCPCS: 36415; 71045; 80053; 81000; 83880; 84484; 85025; 85610; 85730; 93041

== ENCOUNTER 2022-06-27 18:17 | Emergency (ER) | payer MEDICARE, OTHER ==
[~2022-06-27] VITALS: Ht 160 cm; Wt 145.0 kg
[~2022-06-27 18:17] MED LIST changes: +METO-333 PO
[2022-06-27] MEDS ORDERED: CLIN-144 PO (21:29)
--- NOTE | 2022-06-27 21:29 | ED Lower Extremity ---
General Chief Complaint: Lower Extremity Stated Complaint: LEG SWELLING Nursing Triage Note: PATIENT REPORTS FOR THE LAST FEW DAYS SHE HAS HAD PAIN, SWELLING, AND DRAINIAGE OF HER RT LEG. STATES TODAY STARTED HAVING PAIN IN HER RT FOOT Source: patient Exam Limitations: no limitations History of Present Illness Date Seen by Provider: Jun 27, 2022 Time Seen by Provider: 21:27 Allergies and Home Medications Allergies Coded Allergies: codeine (Verified Allergy, Unknown, 12/08/17) Patient Home Medication List Metoprolol Succinate (Toprol Xl) 100 Mg Tab.er.24h, 100 MG PO DAILY Prescribed by: PILAR VELASCO on 05/30/20 1316 Metoprolol Tartrate (Metoprolol Tartrate) 25 Mg Tablet, 50 MG PO DAILY PRN for heart rate over 130 Prescribed by: MIGUEL GARRETT on 12/11/20 194 Past Itmluil-Rerenu-Kedcql Hx Patient Social History Tobacco Use?: No Use of E-Cig and/or Vaping dev: No Substance use?: No Alcohol Use?: No Immunizations Up To Date Tetanus Booster (TDap): Unknown PED Vaccines UTD: Yes First/Initial COVID19 Vaccinat: 2020 Second COVID19 Vaccination Wero: 2020 Third COVID19 Vaccination Date: 2021 Past Medical History Surgery/Hospitalization HX: AFIB Surgeries: Yes Adenoidectomy, Gallbladder, Hysterectomy, Orthopedic, Tonsillectomy Respiratory: No Cardiac: Yes Deep Vein Thrombosis, High Cholesterol Neurological: No Genitourinary: No Gastrointestinal: No Musculoskeletal: Yes Arthritis Endocrine: Yes Diabetes, Non-Insulin dep HEENT: Yes Macular Degeneration Cancer: No Family Medical History No Pertinent Family Hx Physical Exam Vital Signs Vital Signs - First Documented 06/27/22 19:55 Temp 36.7 Pulse 70 Resp 20 B/P (MAP) 142/70 (94) Pulse Ox 98 O2 Delivery Room Air Capillary Refill : Less Than 3 Seconds Height, Weight, BMI Height: 5'7.00" Weight: 270lbs. oz. 122.589377cp; 56.00 BMI Method:Stated Progress/Results/Core Measures Results/Orders My Orders Orders - YESY PLASCENCIA APRN Mupirocin Ointment (Bactroban Ointment (06/28/22 09:00) Clindamycin Capsule (Cleocin Capsule) (06/27/22 21:30) Vital Signs/I&O 06/27/22 19:55 Temp 36.7 Pulse 70 Resp 20 B/P (MAP) 142/70 (94) Pulse Ox 98 O2 Delivery Room Air Blood Pressure Mean: 94 Departure Impression Primary Impression: Cellulitis Disposition: 01 HOME, SELF-CARE Condition: Stable/Unchanged Departure-Patient Inst. Decision time for Depature: 21:27 Referrals: NO,LOCAL PHYSICIAN (PCP/Family) Primary Care Physician Patient Instructions: Cellulitis (Skin Infection), Adult ED Add. Discharge Instructions: Plan: 1. Take antibiotics daily as directed and complete full course. You can wash your right lower leg with mild soap and water, pat dry, apply a thin layer of mupirocin ointment and cover with dry dressing. If the dressing becomes saturated you need to change it, avoid laying saturated dressing stay on your leg for extended periods of time. 2. If your symptoms worsen, you have increased redness, increased swelling, fever, chills, nausea, vomiting you can return to the ER for reevaluation. 3. Call your primary care provider tomorrow to have close follow-up. 4. Return to the ER for any new, concerning, worsening symptoms. All discharge instructions reviewed with patient and/or family. Voiced understanding. Scripts Clindamycin HCl (Clindamycin HCl) 300 Mg Capsule 300 MG PO TID for 7 Days, #21 CAP 0 Refills Prov: YESY PLASCENCIA FULL TIME BABYSITTER 06/27/22 YESY PLASCENCIA FULL TIME BABYSITTER Jun 27, 2022 21:29
[2022-06-27] MEDS ORDERED: CLINDAMYCIN 150 MG (CLEOCIN) CAP PO ONE (21:30)
[2022-06-27] MEDS ORDERED: MUPIROCIN 2% OINT 22 GM (BACTROBAN) TUBE ONE (21:33)
[2022-06-27 21:58] VITALS: BP 142/70
[2022-06-28] MEDS ORDERED: MUPIROCIN 2% OINT 22 GM (BACTROBAN) TUBE NSEACH SCH (09:00)
== END 2022-06-27 21:53 | disposition home or self-care (01) ==
LOC: EDUNIT# 18:17 → ER 18:24
DX: L03.115 Cellulitis of right lower limb (principal)

== ENCOUNTER 2023-02-18 15:05 | Emergency (ER) | payer MEDICARE, OTHER ==
[~2023-02-18] VITALS: Ht 155 cm; Wt 145.0 kg
[~2023-02-18 15:05] MED LIST changes: +CLIN-144 PO
[2023-02-18] MEDS ORDERED: ACETAMINOPHEN 500 MG TAB (TYLENOL) PO ONE (15:30)
[2023-02-18 15:34] LABS: BILIRUBIN,URINE NEGATIVE (NEGATIVE); CLARITY,URINE SL CLOUDY; COLOR,URINE YELLOW; GLUCOSE, URINE (UA) NEGATIVE (NEGATIVE); KETONES,URINE NEGATIVE (NEGATIVE); LEUKOCYTE ESTERASE ,URINE NEGATIVE (NEGATIVE); NITRITE,URINE NEGATIVE (NEGATIVE); PH,URINE 7.5 (5-9); PROTEIN,URINE NEGATIVE (NEGATIVE)
--- NOTE | 2023-02-18 15:34 | ED General ---
General Chief Complaint: General Problems/Pain Stated Complaint: WEAKNESSS Nursing Triage Note: PT IS BLIND, STATES GENERAL WEAKNESS AND SHAKEY SINCE ABOUT 1300 TODAY, STOMACH FEELS UPSET Source of Information: Patient Exam Limitations: No Limitations History of Present Illness Date Seen by Provider: Feb 18, 2023 Time Seen by Provider: 15:15 Initial Comments This 77-year-old woman presents to the emergency room via wheelchair with compl aints of weakness and shakiness since about 1300. She has not checked her blood sugar yet today. She is diabetic. 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 She has atrial fibrillation as well but states this does not feel like an atrial fibrillation problem. She is alert and oriented. She requires assistance getting from the wheelchair to the bed. Her primary care provider is Rachael Goldstein at [facility] in [place]. Her shale planer operator is Dr. Villasenor. She is mildly febrile with a temperature of 38.0 on assessment. She reports URI about 2 weeks ago which has since resolved. She denies any dysuria, diarrhea, cough, or shortness of breath. She does have some mild nausea. Allergies and Home Medications Allergies Coded Allergies: codeine (Verified Allergy, Unknown, 12/08/17) Patient Home Medication List Home Medication List Reviewed: Yes Clindamycin HCl (Clindamycin HCl) 300 Mg Capsule, 300 MG PO TID Prescribed by: YESY PLASCENCIA on 06/27/222128 Metoprolol Succinate (Toprol Xl) 100 Mg Tab.er.24h, 100 MG PO DAILY Prescribed by: PILAR VELASCO on 05/30/20 1316 Metoprolol Tartrate (Metoprolol Tartrate) 25 Mg Tablet, 50 MG PO DAILY PRN for heart rate over 130 Prescribed by: MIGUEL GARRETT on 12/11/201939 Review of Systems Review of Systems Constitutional: see HPI EENTM: see HPI Respiratory: no symptoms reported Cardiovascular: no symptoms reported Gastrointestinal: no symptoms reported Genitourinary: no symptoms reported Musculoskeletal: no symptoms reported Skin: no symptoms reported Psychiatric/Neurological: See HPI Hematologic/Lymphatic: No Symptoms Reported Immunological/Allergic: no symptoms reported Past Sqjiepz-Azqxie-Zybvrp Hx Patient Social History Tobacco Use?: No Substance use?: No Alcohol Use?: No Immunizations Up To Date Tetanus Booster (TDap): Unknown PED Vaccines UTD: Yes First/Initial COVID19 Vaccinat: 2020 Second COVID19 Vaccination Wero: 2020 Third COVID19 Vaccination Date: 2021 Past Medical History Surgery/Hospitalization HX: AFIB, DIABETIC, CLARIBEL, C SECTION, HYST, MACULAR DEGENERATION-BLIND Surgeries: Yes Adenoidectomy, Gallbladder, Hysterectomy, Orthopedic, Tonsillectomy Respiratory: No Cardiac: Yes Deep Vein Thrombosis, High Cholesterol Neurological: No Genitourinary: No Gastrointestinal: No Musculoskeletal: Yes Arthritis Endocrine: Yes Diabetes, Non-Insulin dep HEENT: Yes Macular Degeneration Cancer: No Family Medical History No Pertinent Family Hx Physical Exam Vital Signs Vital Signs - First Documented 02/18/23 15:13 Temp 38.0 Pulse 75 Resp 22 B/P (MAP) 127/74 (91) Pulse Ox 97 O2 Delivery Room Air Capillary Refill : Less Than 3 Seconds Height, Weight, BMI Height: 5'7.00" Weight: 270lbs. oz. 122.502536xg; 60.00 BMI Method:Stated General Appearance: WD/WN, Anxious, Obese HEENT: Normal ENT Inspection, Pharynx Normal Neck: Normal Inspection Respiratory: Lungs Clear, Normal Breath Sounds, No Accessory Muscle Use Cardiovascular: Regular Rate, Rhythm, No Murmur Gastrointestinal: Non Tender, Soft; No Distended Extremity: Non Tender, Swelling Neurologic/Psychiatric: Alert, Oriented x3, Other (slightly shaky. Generalized weakness.) Skin: Normal Color, Warm/Dry Progress/Results/Core Measures Suspected Sepsis SIRS Temperature: Pulse: 75 Respiratory Rate: 22 Laboratory Tests 02/18/23 15:25: White Blood Count 11.9H Blood Pressure 127 /74 Mean: 91 Laboratory Tests 02/18/23 15:25: Creatinine 0.62, Platelet Count 196 Results/Orders Lab Results Laboratory Tests Test 02/18/23 15:15 02/18/23 15:25 Range/Units Urine Color YELLOW Urine Clarity SL CLOUDY Urine pH 7.5 5-9 Urine Specific [place] 1.015 L 1.016-1.022 Urine Protein NEGATIVE NEGATIVE Urine Glucose (UA) NEGATIVE NEGATIVE Urine Ketones NEGATIVE NEGATIVE Urine Nitrite NEGATIVE NEGATIVE Urine Bilirubin NEGATIVE NEGATIVE Urine Urobilinogen 0.2 < = 1.0 MG/DL Urine Leukocyte Esterase NEGATIVE NEGATIVE Urine RBC (Auto) NEGATIVE NEGATIVE Urine RBC NONE /HPF Urine WBC RARE /HPF Urine Squamous Epithelial Cells 2-5 /HPF Urine Crystals NONE /LPF Urine Bacteria FEW H /HPF Urine Casts NONE /LPF Urine Mucus NEGATIVE /LPF Urine Culture Indicated YES White Blood Count 11.9 H 4.3-11.0 10^3/uL Red Blood Count 4.26 3.80-5.11 10^6/uL Hemoglobin 12.6 11.5-16.0 g/dL Hematocrit 38 35-52 % Mean Corpuscular Volume 89 80-99 fL Mean Corpuscular Hemoglobin 30 25-34 pg Mean Corpuscular Hemoglobin Concent 33 32-36 g/dL Red Cell Distribution Width 14.1 10.0-14.5 % Platelet Count 196 130-400 10^3/uL Mean Platelet Volume 10.4 9.0-12.2 fL Immature Granulocyte % (Auto) 0 % Neutrophils (%) (Auto) 88 H 42-75 % Lymphocytes (%) (Auto) 5 L 12-44 % Monocytes (%) (Auto) 6 0-12 % Eosinophils (%) (Auto) 1 0-10 % Basophils (%) (Auto) 0 0-10 % Neutrophils # (Auto) 10.5 H 1.8-7.8 10^3/uL Lymphocytes # (Auto) 0.6 L 1.0-4.0 10^3/uL Monocytes # (Auto) 0.7 0.0-1.0 10^3/uL Eosinophils # (Auto) 0.1 0.0-0.3 10^3/uL Basophils # (Auto) 0.0 0.0-0.1 10^3/uL Immature Granulocyte # (Auto) 0.0 0.0-0.1 10^3/uL Neutrophils % (Manual) 91 % Lymphocytes % (Manual) 4 % Monocytes % (Manual) 5 % Blood Morphology Comment NORMAL Sodium Level 137 135-145 MMOL/L Potassium Level 4.4 3.6-5.0 MMOL/L Chloride Level 103 98-107 MMOL/L Carbon Dioxide Level 21 21-32 MMOL/L Anion Gap 13 5-14 MMOL/L Blood Urea Nitrogen 14 7-18 MG/DL Creatinine 0.62 0.60-1.30 MG/DL Estimat Glomerular Filtration Rate 93 BUN/Creatinine Ratio 23 Glucose Level 135 H 70-105 MG/DL Calcium Level 9.6 8.5-10.1 MG/DL C-Reactive Protein High Sensitivity 0.12 0.00-0.50 MG/DL Influenza Type A (RT-PCR) Not Detected Not Detecte Influenza Type B (RT-PCR) Not Detected Not Detecte SARS-CoV-2 RNA (RT-PCR) Not Detected Not Detecte Micro Results Microbiology 02/18/23 Urine Culture - Final, Complete See Comments My Orders Orders - PILAR PATEL MD Basic Metabolic Panel (02/18/23 15:25) Cbc With Automated Diff (02/18/23 15:25) Hs C Reactive Protein (02/18/23 15:25) Ua Culture If Indicated (02/18/23 15:25) Ed Iv/Invasive Line Start (02/18/23 15:25) Chest 1 View, Ap/Pa Only (02/18/23 15:25) Covid 19 Inhouse Test (02/18/23 15:25) Influenza A And B By Pcr (02/18/23 15:25) Acetaminophen Tablet (Tylenol Tablet) (02/18/23 15:30) Ondansetron Injection (Zofran Injectio (02/18/23 15:45) Manual Differential (02/18/23 15:25) Urine Culture (02/18/23 15:15) Medications Given in ED Vital Signs/I&O 02/18/23 02/18/23 02/18/23 15:13 15:31 16:30 Temp 38.0 38.0 37.8 Pulse 75 72 Resp 22 20 B/P (MAP) 127/74 (91) 136/71 Pulse Ox 97 97 O2 Delivery Room Air Room Air Capillary Refill : Less Than 3 Seconds Blood Pressure Mean: 91 Progress Note : Time: 16:10 Progress Note Patient was found to have a slight fever. First temperature was 38.0 and repeat temperature was 38.1. She was given Tylenol 1000 mg. Work-up was essentially unremarkable. Labs were reviewed and interpreted by me. CBC demonstrated a slight elevation in WBC, but CRP was normal. BMP was unremarkable. Blood sugar was slightly elevated at 135. Urinalysis reported rare WBC and few bacteria with some squamous cells present. This likely represents contamination. Patient was feeling better after Tylenol though she still had temperature of 38.1. Chest x-ray was clear. She was requiring no further treatment in the emergency room. I suspect her fever is likely from viral illness. See discharge instructions for further discussion. Diagnostic Imaging Diagonstic Imaging: Xray Plain Films/CT/US/NM/MRI: chest Comments NAME: SU PATEL [facility] REC#: [id number] PT STATUS: REG ER : 1945 PHYSICIAN: PILAR PATEL MD ADMIT DATE: 02/18/23/ER Draft Date of Exam:02/18/23 CHEST 1 VIEW, AP/PA ONLY INDICATION: Dyspnea with fever. COMPARISON: 12/11/2020. DISCUSSION: Single portable upright view of the chest was obtained. Cardiomegaly is stable. Mild peribronchial thickening is noted. No focal consolidation. No pleural fluid or pneumothorax. No osseous abnormality. IMPRESSION: Mild peribronchial thickening. Dictated on workstation # [id number] Dict: 02/18/23 1545 Trans: 02/18/23 1547 [facility] [id number] Interpreted by: ANUSHA PASTRANA MD Departure Impression Primary Impression: Febrile illness Disposition: 01 HOME, SELF-CARE Condition: Improved Departure-Patient Inst. Decision time for Depature: 16:13 Referrals: RACHAEL GOLDSTEIN APRN (PCP/Family) Primary Care Physician Patient Instructions: Fever, Adult ED Add. Discharge Instructions: Drink plenty of clear liquids to stay well-hydrated. Monitor your blood sugars closely while you are ill. Drink plenty of clear liquids to stay well-hydrated. You may continue taking Tylenol (acetaminophen). You may take your arthritis pain relief or extra strength Tylenol. Do not exceed more than 4000 mg of Tylenol per day. Return to the emergency room if you have worsening symptoms and need reevaluation. All discharge instructions reviewed with patient and/or family. Voiced understanding. PILAR PATEL MD Feb 18, 2023 15:34
[2023-02-18 15:35] LABS: BASOPHILS % (AUTO) 0 % (0-10); EOSINOPHILS # (AUTO) 0.1 10^3/uL (0.0-0.3); EOSINOPHILS % (AUTO) 1 % (0-10); HEMATOCRIT 38 % (35-52); HEMOGLOBIN 12.6 g/dL (11.5-16.0); LYMPHOCYTES # (AUTO) 0.6 10^3/uL (1.0-4.0); LYMPHOCYTES % (AUTO) 5 % (12-44); MEAN CORPUSCULAR HEMOGLOBIN 30 pg (25-34); MEAN CORPUSCULAR HGB CONC 33 g/dL (32-36); MEAN CORPUSCULAR VOLUME 89 fL (80-99); MEAN PLATELET VOLUME 10.4 fL (9.0-12.2); MONOCYTES # (AUTO) 0.7 10^3/uL (0.0-1.0); MONOCYTES % (AUTO) 6 % (0-12); NEUTROPHILS # (AUTO) 10.5 10^3/uL (1.8-7.8); NEUTROPHILS % (AUTO) 88 % (42-75); PLATELET COUNT 196 10^3/uL (130-400); WHITE BLOOD COUNT 11.9 10^3/uL (4.3-11.0)
[2023-02-18 15:41] LABS: BACTERIA,URINE FEW /HPF; WBC,URINE RARE /HPF
[2023-02-18] MEDS ORDERED: ONDANSETRON 4 MG/2 ML (SDV) Z0FRAN IVP ONE (15:45)
[2023-02-18 15:46] LABS: POTASSIUM 4.4 MMOL/L (3.6-5.0)
[2023-02-18 15:47] LABS: CALCIUM 9.6 MG/DL (8.5-10.1)
--- NOTE | 2023-02-18 15:47 | Diagnostic Imaging Report ---
INDICATION: Dyspnea with fever. COMPARISON: 12/11/2020. DISCUSSION: Single portable upright view of the chest was obtained. Cardiomegaly is stable. Mild peribronchial thickening is noted. No focal consolidation. No pleural fluid or pneumothorax. No osseous abnormality. IMPRESSION: Mild peribronchial thickening. Dictated by: Dictated on workstation # [id number]
[2023-02-18 15:51] LABS: CREATININE SERUM 0.62 MG/DL (0.60-1.30)
[2023-02-18 16:02] LABS: LYMPHOCYTES % (MANUAL) 4 %; MONOCYTES % (MANUAL) 5 %; NEUTROPHILS % (MANUAL) 91 %; RBC MORPH NORMAL
[2023-02-18 16:30] VITALS: BP 136/71
== END 2023-02-18 16:30 | disposition home or self-care (01) ==
LOC: EDUNIT# 15:05 → ER 15:07
DX: R50.9 Fever, unspecified (principal); D72.829 Elevated white blood cell count, unspecified; H54.7 Unspecified visual loss; H35.30 Unspecified macular degeneration; E11.9 Type 2 diabetes mellitus without complications; E66.9 Obesity, unspecified; Z68.44 Body mass index [BMI] 60.0-69.9, adult; Z20.822 Contact with and (suspected) exposure to COVID-19
CPT/HCPCS: 36415; 71045; 80048; 81000; 85007; 85027; 86141; 87088; 87636

== ENCOUNTER → 2023-03-29 | Outpatient (CLI) | payer MEDICARE, OTHER | LOC: CARD 10:51 | PROVIDERS: ATTEND Nurse Practitioner Family | DX: I51.7 Cardiomegaly (principal); I51.9 Heart disease, unspecified; I50.32 Chronic diastolic (congestive) heart failure; I36.1 Nonrheumatic tricuspid (valve) insufficiency | CPT/HCPCS: 93306 ==

== ENCOUNTER 2023-06-18 20:20 | Inpatient (IN) | payer MEDICARE, OTHER ==
[~2023-06-18] VITALS: Ht 172.7 cm; Wt 137.8 kg
[2023-06-18 20:34] LABS: BASOPHILS % (AUTO) 1 % (0-10); EOSINOPHILS # (AUTO) 0.1 10^3/uL (0.0-0.3); EOSINOPHILS % (AUTO) 2 % (0-10); HEMATOCRIT 37 % (35-52); LYMPHOCYTES # (AUTO) 1.2 10^3/uL (1.0-4.0); LYMPHOCYTES % (AUTO) 20 % (12-44); MEAN CORPUSCULAR HEMOGLOBIN 29 pg (25-34); MEAN CORPUSCULAR HGB CONC 32 g/dL (32-36); MEAN CORPUSCULAR VOLUME 91 fL (80-99); MEAN PLATELET VOLUME 10.4 fL (9.0-12.2); MONOCYTES # (AUTO) 0.6 10^3/uL (0.0-1.0); MONOCYTES % (AUTO) 11 % (0-12); NEUTROPHILS # (AUTO) 3.8 10^3/uL (1.8-7.8); NEUTROPHILS % (AUTO) 66 % (42-75); PLATELET COUNT 184 10^3/uL (130-400); WHITE BLOOD COUNT 5.8 10^3/uL (4.3-11.0)
[2023-06-18 20:46] LABS: INR 2.1 (0.8-1.4); PROTHROMBIN TIME PATIENT 23.8 SEC (12.2-14.7)
[2023-06-18 20:53] LABS: ALBUMIN 4.2 GM/DL (3.2-4.5); CALCIUM 9.6 MG/DL (8.5-10.1); CREATININE SERUM 0.66 MG/DL (0.60-1.30); POTASSIUM 4.3 MMOL/L (3.6-5.0); TOTAL PROTEIN 6.5 GM/DL (6.4-8.2)
[2023-06-18 21:01] LABS: CREATINE KINASE MB 1.5 NG/ML (<6.6)
--- NOTE | 2023-06-18 21:09 | ED Fall/Injury ---
General Chief Complaint: Trauma-Non Activation Stated Complaint: FALL Nursing Triage Note: PT TO RM 2 BY [facility] WITH C/O FALL AROUND 1900 AT HOME. PT HIT HEAD ON HARD WOOD FLOOR, PT ON THINNERS. PT ALSO C/O L KNEE PAIN Source: patient, EMS History of Present Illness Date Seen by Provider: Jun 18, 2023 Time Seen by Provider: 20:25 Initial Comments PT ARRIVES VIA [facility] --NO IMMOBILIZATION PT STATES SHE WAS WALKING FROM THE BATHROOM TO THE BEDROOM AND FELL--THINKS SHE CAUGHT HER FOOT ON THE FLOOR--SHE WAS BAREFOOT AT THE TIME SHE FELL FORWARD, HITTING HER FACE ON HARDWOOD FLOOR PT C/O PAIN TO FACE SHE ALSO C/O PAIN TO LEFT KNEE SHE DENIES LOSS OF CONSCIOUSNESS DENIES HEADACHE DENIES VISION CHANGES DENIES NAUSEA/VOMITING DENIES DIZZINESS DENIES NECK OR BACK PAIN DENIES CHEST PAIN OR SHORTNESS OF BREATH DENIES PALPITATIONS Allergies and Home Medications Allergies Coded Allergies: codeine (Verified Allergy, Unknown, 12/08/17) Patient Home Medication List Clindamycin HCl (Clindamycin HCl) 300 Mg Capsule, 300 MG PO TID Prescribed by: YESY PLASCENCIA on 06/27/222128 Metoprolol Succinate (Toprol Xl) 100 Mg Tab.er.24h, 100 MG PO DAILY Prescribed by: PILAR VELASCO on 05/30/20 1316 Metoprolol Tartrate (Metoprolol Tartrate) 25 Mg Tablet, 50 MG PO DAILY PRN for heart rate over 130 Prescribed by: MIGUEL GARRETT on 12/11/20 194 Past Hkkqhld-Sgykvq-Xegush Hx Patient Social History Tobacco Use?: No Use of E-Cig and/or Vaping dev: No Substance use?: No Alcohol Use?: No Pt feels they are or have been: No Immunizations Up To Date Tetanus Booster (TDap): Unknown PED Vaccines UTD: Yes First/Initial COVID19 Vaccinat: 2020 Second COVID19 Vaccination Wero: 2020 Third COVID19 Vaccination Date: 2021 Past Medical History Surgery/Hospitalization HX: AFIB, DIABETIC, CLARIBEL, C SECTION, HYST, MACULAR DEGENERATION-BLIND Surgeries: Yes Adenoidectomy, Gallbladder, Hysterectomy, Orthopedic, Tonsillectomy Respiratory: No Cardiac: Yes Deep Vein Thrombosis, High Cholesterol Neurological: No Genitourinary: No Gastrointestinal: No Musculoskeletal: Yes Arthritis Endocrine: Yes Diabetes, Non-Insulin dep HEENT: Yes Macular Degeneration Cancer: No Family Medical History No Pertinent Family Hx Physical Exam Vital Signs Vital Signs - First Documented 06/18/23 20:22 Temp 36.0 Pulse 67 Resp 25 B/P (MAP) 179/92 (121) Pulse Ox 95 O2 Delivery Room Air Capillary Refill : Height, Weight, BMI Height: 5'7.00" Weight: 270lbs. oz. 122.229754ej; 60.00 BMI Method:Stated Progress/Results/Core Measures Results/Orders Lab Results Laboratory Tests Test 06/18/23 20:25 Range/Units White Blood Count 5.8 4.3-11.0 10^3/uL Red Blood Count 4.08 3.80-5.11 10^6/uL Hemoglobin 12.0 11.5-16.0 g/dL Hematocrit 37 35-52 % Mean Corpuscular Volume 91 80-99 fL Mean Corpuscular Hemoglobin 29 25-34 pg Mean Corpuscular Hemoglobin Concent 32 32-36 g/dL Red Cell Distribution Width 15.2 H 10.0-14.5 % Platelet Count 184 130-400 10^3/uL Mean Platelet Volume 10.4 9.0-12.2 fL Immature Granulocyte % (Auto) 0 % Neutrophils (%) (Auto) 66 42-75 % Lymphocytes (%) (Auto) 20 12-44 % Monocytes (%) (Auto) 11 0-12 % Eosinophils (%) (Auto) 2 0-10 % Basophils (%) (Auto) 1 0-10 % Neutrophils # (Auto) 3.8 1.8-7.8 10^3/uL Lymphocytes # (Auto) 1.2 1.0-4.0 10^3/uL Monocytes # (Auto) 0.6 0.0-1.0 10^3/uL Eosinophils # (Auto) 0.1 0.0-0.3 10^3/uL Basophils # (Auto) 0.0 0.0-0.1 10^3/uL Immature Granulocyte # (Auto) 0.0 0.0-0.1 10^3/uL Prothrombin Time 23.8 H 12.2-14.7 SEC INR Comment 2.1 H 0.8-1.4 Activated Partial Thromboplast Time 41 H 24-35 SEC Sodium Level 136 135-145 MMOL/L Potassium Level 4.3 3.6-5.0 MMOL/L Chloride Level 102 98-107 MMOL/L Carbon Dioxide Level 26 21-32 MMOL/L Anion Gap 8 5-14 MMOL/L Blood Urea Nitrogen 11 7-18 MG/DL Creatinine 0.66 0.60-1.30 MG/DL Estimat Glomerular Filtration Rate 91 BUN/Creatinine Ratio 17 Glucose Level 117 H 70-105 MG/DL Calcium Level 9.6 8.5-10.1 MG/DL Corrected Calcium 9.4 8.5-10.1 MG/DL Magnesium Level 2.0 1.6-2.4 MG/DL Total Bilirubin 1.0 0.1-1.0 MG/DL Aspartate Amino Transf (AST/SGOT) 15 5-34 U/L Alanine Aminotransferase (ALT/SGPT) 15 0-55 U/L Alkaline Phosphatase 52 40-136 U/L Total Creatine Kinase 45 29-168 U/L Creatine Kinase MB 1.5 <6.6 NG/ML Myoglobin 61.1 10.0-92.0 NG/ML Troponin I 0.048 H <0.028 NG/ML Total Protein 6.5 6.4-8.2 GM/DL Albumin 4.2 3.2-4.5 GM/DL My Orders Orders - LON MANZANARES DO Ed Iv/Invasive Line Start (06/18/23 20:27) Monitor-Rhythm Ecg Trace Only (06/18/23 20:27) Ct Head/Face/Cervical Wo (06/18/23 20:27) Ct Thoracic/Lumbar Spine Wo (06/18/23 20:27) Chest 1 View, Ap/Pa Only (06/18/23 20:27) Pelvis 1 To 2 Views (06/18/23 20:27) Cbc With Automated Diff (06/18/23 20:27) Comprehensive Metabolic Panel (06/18/23 20:27) Creatine Kinase (06/18/23 20:27) Creatine Kinase Mb (06/18/23 20:27) Magnesium (06/18/23 20:27) Protime With Inr (06/18/23 20:27) Partial Thromboplastin Time (06/18/23 20:27) Myoglobin Serum (06/18/23 20:27) Troponin I [place] (06/18/23 20:27) Cervical Collar (06/18/23 20:27) Ekg Tracing (06/18/23 20:27) O2 (06/18/23 20:27) Knee, 3 Views, Bilateral (06/18/23 20:27) Vital Signs/I&O 06/18/23 20:22 Temp 36.0 Pulse 67 Resp 25 B/P (MAP) 179/92 (121) Pulse Ox 95 O2 Delivery Room Air Blood Pressure Mean: 121 Departure Departure-Patient Inst. Referrals: CAROLINE OLIVAS APRN (PCP/Family) Primary Care Physician LON MANZANARES DO Jun 18, 2023 21:09
--- NOTE | 2023-06-18 21:35 | Diagnostic Imaging Report ---
PROCEDURE: CT head, face, cervical spine without contrast. TECHNIQUE: Multiple contiguous axial images were obtained through the head, neck, and facial bones without the use of intravenous contrast. Sagittal and coronal reformations through the cervical spine and facial bones were also performed. All CT scans use one or more of the following dose optimizing techniques: automated exposure control, MA and/or KvP adjustment based on patient size and exam type or iterative reconstruction. INDICATION: Trauma. COMPARISON: CT head of 12/08/2017. FINDINGS: HEAD: No hyperdense hemorrhage or space-occupying mass. No hydrocephalus or midline shift. No evidence of territorial infarct. Basilar cisterns are patent. Left supraorbital scalp swelling with small hematoma. No skull fracture. The mastoid air cells are clear. FACE: No fracture of the nasal bones, osseous nasal septum or anterior nasal spine. The orbits, zygomatic arches, maxillary sinus becerra, alveolar ridge of the maxilla and pterygoid plates are all intact. Normal alignment of the temporal mandibular joints. No acute mandibular fracture. Paranasal sinuses are clear. No globe rupture or retrobulbar hematoma. CERVICAL SPINE: No acute fracture or traumatic malalignment. Multilevel degenerative changes with ankylosis across C5-C7. Airway is patent. No cervical lymphadenopathy. Subcentimeter calcified left thyroid nodule does not require dedicated follow-up imaging. IMPRESSION: 1. No acute intracranial process or skull fracture. Left supraorbital scalp hematoma. 2. No acute fracture in the mid face or mandible. 3. No acute fracture or traumatic malalignment of the cervical spine. Dictated by: Dictated on workstation # [id number]
--- NOTE | 2023-06-18 21:44 | Diagnostic Imaging Report ---
CT Thoracic/lumbar spine w/o INDICATION: Back trauma. COMPARISON: None available. TECHNIQUE: CT imaging of the thoracic and lumbar spine was performed without contrast. Automatic exposure controls were utilized for dose optimization. FINDINGS: Thoracic: Osteoporosis. No acute fracture. No traumatic malalignment. No sites of high-grade spinal canal stenosis. No acute fracture within the visualized aspects of posterior ribs. Lumbar: No acute fracture. Grade 1 anterolisthesis of L5 on S1 is due to severe facet osteoarthritis. Moderate to severe spinal canal stenosis at L4-L5 due to facet osteoarthritis and disc bulging. No concerning abnormality in the retroperitoneum. IMPRESSION: No acute fracture in the thoracic or lumbar spine. Dictated by: Dictated on workstation # [id number]
--- NOTE | 2023-06-18 21:59 | Diagnostic Imaging Report ---
CHEST 1 VIEW, AP/PA ONLY Indication: Chest trauma Comparison: 02/18/2023 Findings: No focal airspace disease in the visualized lungs. No pleural effusion or pneumothorax. Unchanged cardiomegaly. No displaced fracture of the visualized aspects of the clavicles or ribs. Impression: 1. No acute cardiopulmonary process by portable radiography. Dictated by: Dictated on workstation # [id number]
--- NOTE | 2023-06-18 22:00 | Diagnostic Imaging Report ---
PELVIS 1 TO 2 VIEWS INDICATION: Trauma COMPARISON: None available. TECHNIQUE: AP view of the pelvis. FINDINGS: No diastases of the symphysis pubis or SI joints. No hip dislocation. No acute displaced fracture within the pelvis is appreciated. Atherosclerotic calcifications are present in the proximal thighs. IMPRESSION: No acute displaced fracture or traumatic malalignment. Dictated by: Dictated on workstation # [id number]
--- NOTE | 2023-06-18 22:01 | Diagnostic Imaging Report ---
Knee, 3 views, bilateral INDICATION: Bilateral knee pain. COMPARISON: None available. TECHNIQUE: 3 views of each knee for a total of 6 views. FINDINGS: Bilateral total knee arthroplasties have been performed. No acute periprosthetic fracture is seen on either side. No appreciable knee joint effusion. Extensive atherosclerotic calcifications are present. There are also some benign soft tissue calcifications in the proximal left lower leg. IMPRESSION: No acute complication associated with the bilateral total knee arthroplasties. Dictated by: Dictated on workstation # [id number]
[2023-06-18] MEDS ORDERED: PATIENT MAY USE OWN MEDS, ALL PO SCH (22:45)
[2023-06-18] MEDS ORDERED: ONDANSETRON INJECTION 4 MG/2 ML (SDV) IVP PRN (22:45)
[2023-06-19] VITALS (7 sets, daily range): BP systolic 100–156; BP diastolic 59–83
[2023-06-19] MEDS: fentaNYL INJECTION 100 MCG/2 ML VIAL IV PRN ×2 (00:12→10:04)
[2023-06-19 02:50] LABS: BASOPHILS % (AUTO) 0 % (0-10); EOSINOPHILS # (AUTO) 0.1 10^3/uL (0.0-0.3); EOSINOPHILS % (AUTO) 1 % (0-10); HEMATOCRIT 37 % (35-52); HEMOGLOBIN 11.9 g/dL (11.5-16.0); LYMPHOCYTES # (AUTO) 1.1 10^3/uL (1.0-4.0); LYMPHOCYTES % (AUTO) 18 % (12-44); MEAN CORPUSCULAR HEMOGLOBIN 30 pg (25-34); MEAN CORPUSCULAR HGB CONC 32 g/dL (32-36); MEAN CORPUSCULAR VOLUME 91 fL (80-99); MEAN PLATELET VOLUME 10.7 fL (9.0-12.2); MONOCYTES # (AUTO) 0.5 10^3/uL (0.0-1.0); MONOCYTES % (AUTO) 8 % (0-12); NEUTROPHILS # (AUTO) 4.7 10^3/uL (1.8-7.8); NEUTROPHILS % (AUTO) 73 % (42-75); PLATELET COUNT 165 10^3/uL (130-400); WHITE BLOOD COUNT 6.5 10^3/uL (4.3-11.0)
[2023-06-19 03:04] LABS: POTASSIUM 4.1 MMOL/L (3.6-5.0)
[2023-06-19 03:05] LABS: CALCIUM 9.2 MG/DL (8.5-10.1)
[2023-06-19 03:10] LABS: CREATININE SERUM 0.61 MG/DL (0.60-1.30)
[2023-06-19] MEDS: CATHETER FLUSH 10 ML SYR IVP SCH ×3 (06:12→22:08)
--- NOTE | 2023-06-19 08:54 | Consultation-Cardiology ---
HPI-Cardiology Cardiology Consultation Date of Consultation 06/19/23 Date of Admission Time Seen by Provider: 08:49 Indication: Atrial fibrillation HPI 77-year-old lady with history of paroxysmal atrial fibrillation, sustained a fall, patient does not recall losing consciousness she reported that she tripped and fell had trauma to her head and has bruises on her face. She denied any syncope. Denied any chest pain or palpitation. This morning she started to have some chest pain described as dull achiness in the retrosternal area radiating to the left arm. Has chronic pedal edema. Home Medications & Allergies Allergies: Coded Allergies: codeine (Verified Allergy, Unknown, 12/08/17) Home Medication List Reviewed: Yes OIX-Takvqz-Yfnkrm Hx Patient Social History Marital Status: Employed/Student: retired Alcohol Use?: No Immunizations Up To Date Tetanus Booster (TDap): Unknown Past Medical History Discussed below Family Medical History Significant Family History: No Pertinent Family Hx Review of Systems-General Review of Systems Constitutional: no symptoms reported, see HPI, malaise EENTM: see HPI, no symptoms reported Respiratory: no symptoms reported, see HPI Cardiovascular: see HPI, chest pain, edema; No Hx of Intervention, No palpitations, No syncope, No vascular heart diseas, No other Gastrointestinal: no symptoms reported, see HPI Genitourinary: no symptoms reported, see HPI Musculoskeletal: no symptoms reported, see HPI Skin: no symptoms reported, see HPI Psychiatric/Neurological: No Symptoms Reported, See HPI Reviewed Test Results Reviewed Test Results Lab Laboratory Tests Test 06/18/23 20:25 06/18/23 23:26 06/19/23 02:20 Range/Units White Blood Count 5.8 6.5 4.3-11.0 10^3/uL Red Blood Count 4.08 4.04 3.80-5.11 10^6/uL Hemoglobin 12.0 11.9 11.5-16.0 g/dL Hematocrit 37 37 35-52 % Mean Corpuscular Volume 91 91 80-99 fL Mean Corpuscular Hemoglobin 29 30 25-34 pg Mean Corpuscular Hemoglobin Concent 32 32 32-36 g/dL Red Cell Distribution Width 15.2 H 15.1 H 10.0-14.5 % Platelet Count 184 165 130-400 10^3/uL Mean Platelet Volume 10.4 10.7 9.0-12.2 fL Immature Granulocyte % (Auto) 0 0 % Neutrophils (%) (Auto) 66 73 42-75 % Lymphocytes (%) (Auto) 20 18 12-44 % Monocytes (%) (Auto) 11 8 0-12 % Eosinophils (%) (Auto) 2 1 0-10 % Basophils (%) (Auto) 1 0 0-10 % Neutrophils # (Auto) 3.8 4.7 1.8-7.8 10^3/uL Lymphocytes # (Auto) 1.2 1.1 1.0-4.0 10^3/uL Monocytes # (Auto) 0.6 0.5 0.0-1.0 10^3/uL Eosinophils # (Auto) 0.1 0.1 0.0-0.3 10^3/uL Basophils # (Auto) 0.0 0.0 0.0-0.1 10^3/uL Immature Granulocyte # (Auto) 0.0 0.0 0.0-0.1 10^3/uL Prothrombin Time 23.8 H 12.2-14.7 SEC INR Comment 2.1 H 0.8-1.4 Activated Partial Thromboplast Time 41 H 24-35 SEC Sodium Level 136 137 135-145 MMOL/L Potassium Level 4.3 4.1 3.6-5.0 MMOL/L Chloride Level 102 102 98-107 MMOL/L Carbon Dioxide Level 26 26 21-32 MMOL/L Anion Gap 8 9 5-14 MMOL/L Blood Urea Nitrogen 11 9 7-18 MG/DL Creatinine 0.66 0.61 0.60-1.30 MG/DL Estimat Glomerular Filtration Rate 91 93 BUN/Creatinine Ratio 17 15 Glucose Level 117 H 98 70-105 MG/DL Calcium Level 9.6 9.2 8.5-10.1 MG/DL Corrected Calcium 9.4 8.5-10.1 MG/DL Magnesium Level 2.0 1.6-2.4 MG/DL Total Bilirubin 1.0 0.1-1.0 MG/DL Aspartate Amino Transf (AST/SGOT) 15 5-34 U/L Alanine Aminotransferase (ALT/SGPT) 15 0-55 U/L Alkaline Phosphatase 52 40-136 U/L Total Creatine Kinase 45 29-168 U/L Creatine Kinase MB 1.5 <6.6 NG/ML Myoglobin 61.1 10.0-92.0 NG/ML Troponin I 0.048 H 0.041 H 0.045 H <0.028 NG/ML Total Protein 6.5 6.4-8.2 GM/DL Albumin 4.2 3.2-4.5 GM/DL Triglycerides Level 55 <150 MG/DL Cholesterol Level 127 < 200 MG/DL LDL Cholesterol Direct 54 1-129 MG/DL VLDL Cholesterol 11 5-40 MG/DL HDL Cholesterol 64 H 40-60 MG/DL Physical Exam Physical Exam Vital Signs Vital Signs - First Documented 06/18/23 20:22 Temp 36.0 Pulse 67 Resp 25 B/P (MAP) 179/92 (121) Pulse Ox 95 O2 Delivery Room Air Capillary Refill : Height, Weight, BMI Height: 5'7.00" Weight: 270lbs. oz. 122.087118yx; 46.13 BMI Method:Stated General Appearance: No Apparent Distress, WD/WN Eyes: Bilateral Eye Normal Inspection, Bilateral Eye PERRL, Bilateral Eye EOMI HEENT: PERRL/EOMI, TMs Normal, Normal ENT Inspection, Pharynx Normal, Moist Mucous Membranes Neck: Full Range of Motion, Normal Inspection, Non Tender, Supple, Carotid Bruit Respiratory: Chest Non Tender, Normal Breath Sounds, No Accessory Muscle Use, No Respiratory Distress Cardiovascular: No Gallop, No JVD, Normal Peripheral Pulses, Bradycardia, Systolic Murmur Gastrointestinal: Normal Bowel Sounds, No Organomegaly, No Pulsatile Mass, Non Tender, Soft Back: Normal Inspection, No CVA Tenderness, No Vertebral Tenderness Extremity: Normal Capillary Refill, Normal Inspection, Normal Range of Motion, Non Tender, No Calf Tenderness, Pedal Edema Neurologic/Psychiatric: Alert, Oriented x3, No Motor/Sensory Deficits, Normal Mood/Affect Skin: Normal Color, Warm/Dry Lymphatic: No Adenopathy A/P-Cardiology Admission Diagnosis Sinus node dysfunction Paroxysmal atrial fibrillation Chest pain Non-ST elevation myocardial infarction Assessment/Plan Fall with trauma to the face and bruising on the face Does not recall syncope. Chest pain, resembling angina. Had mild elevation in troponin which has been flat. We will continue to monitor troponin and evaluate twelve-lead EKG and start nitroglycerin Lexiscan stress test done in [place] [address] Guzman reported as no ischemia or infarction with ejection fraction 65% 2D echo was done in April 2023 with normal LV size, EF 50 to 55%, biatrial enlargement, PA pressure 40 to 45 mmHg Sinus node dysfunction, sinus bradycardia and pauses with first-degree AV block and right bundle branch block Patient has been maintained on diltiazem CD180 and metoprolol ER 100 Hold metoprolol and Cardizem and monitor heart rate Paroxysmal atrial fibrillation, has been in sinus rhythm Maintained on Coumadin Currently on hold. Continue to monitor heart rate Hypertension, monitor blood pressure Hyperlipidemia, monitor lipids Chronic pedal edema for which use Lasix 40 mg daily Diabetes mellitus, followed by primary care physician Rheumatoid arthritis, bilateral TKR Unsteady gait FAHAD MEJIA MD Jun 19, 2023 08:54
[2023-06-19] MEDS ORDERED: NITROGLYCERIN 0.4 MG SL TABLETS BTL 25'S SL PRN (09:00)
[2023-06-19] MEDS: NITROGLYCERIN 0.4 MG/HR PATCH TD SCH (09:03)
[2023-06-19] MEDS ORDERED: ATOR20TA66 PO (09:38)
[2023-06-19] MEDS ORDERED: CALC-694 PO (09:38)
[2023-06-19] MEDS ORDERED: POTA40LI3 PO (09:38)
[2023-06-19] MEDS ORDERED: ELDE350C PO (09:38)
[2023-06-19] MEDS ORDERED: DILT180C85 PO (09:38)
[2023-06-19] MEDS ORDERED: FISH1CAP15 PO (09:38)
[2023-06-19] MEDS ORDERED: WARF-48 PO (09:38)
[2023-06-19] MEDS ORDERED: MTP100TCR PO (09:38)
[2023-06-19] MEDS ORDERED: CRAN250C2 PO (09:38)
[2023-06-19] MEDS ORDERED: LISI10TA25 PO (09:38)
[2023-06-19] MEDS ORDERED: DOCU100C37 PO (09:38)
[2023-06-19] MEDS ORDERED: LATA2.5D19 OU (09:38)
[2023-06-19] MEDS ORDERED: TIMO5DRO16 OU (09:38)
[2023-06-19] MEDS ORDERED: ASCO100024 PO (09:38)
[2023-06-19] MEDS ORDERED: ACET-2650 PO (09:38)
[2023-06-19] MEDS ORDERED: WRF1T PO (09:38)
[2023-06-19] MEDS ORDERED: FURO80TA3 PO (09:38)
--- NOTE | 2023-06-19 13:33 | Occupational Therapy Eval ---
OT Evaluation-General/PLF Medical Diagnosis Admission Date Jun 18, 2023 at 22:19 Medical Diagnosis: Sinus node dysfunction Onset Date: Jun 18, 2023 Therapy Diagnosis Therapy Diagnosis: weakness Height/Weight Height (Feet): 5 Height (Inches): 7.00 Weight (Pounds): 270 Precautions Precautions/Isolations: Fall Prevention, Standard Precautions Referral Referral Reason: Evaluation/Treatment Referral Comments Sinus node dysfunction Paroxysmal atrial fibrillati Medical History Additional Medical History 77-year-old lady with history of paroxysmal atrial fibrillation, sustained a fall, patient does not recall losing consciousness she reported that she tripped and fell had trauma to her head and has bruises on her face. She denied any syncope. Denied any chest pain or palpitation. This morning she started to have some chest pain described as dull achiness in the retrosternal area radiating to the left arm. Has chronic pedal edema Current History Vision deficit, MAC DEGEN Reviewed History: Yes Social History Home: Single Level Entry Into Home: Stairs With Railing Steps Into Home: 3 uses a 4ww/seat, little walker FWW, huricane ADL-Prior Level of Function SCALE: Activities may be completed with or without assistive devices. 6-Etropzzldr-zwdpgtw completes the activity by him/herself with no assistance from a helper. 5-Set-up or Clean-up Assistance-helper sets up or cleans up; patient completes activity. [place] assists only prior to or following the activity. 4-Supervision or Touching Assistance-helper provides verbal cues and/or touching/steadying and/or contact guard assistance as patient completes activity. Assistance may be provided throughout the activity or intermittently. 3-Partial/Moderate Assistance-helper does LESS THAN HALF the effort. [place] lifts, holds or supports trunk or limbs, but provides less than half the effort. 2-Substantial/Maximal Assistance-helper does MORE THAN HALF the effort. [place] lifts or holds trunk or limbs and provides more than half the effort. 5-Wpmwcjexf-yjdwsv does ALL the effort. Patient does none of the effort to complete the activity. Or, the assistance of 2 or more helpers is required for the patient to complete the activity. If activity was not attempted, code reason: 7-Patient Refused. 9-Not Applicable-not attempted and the patient did not perform the activity before the current illness, exacerbation or injury. 10-Not Attempted due to Environmental Limitations-(lack of equipment, weather restraints, etc.). 88-Not Attempted due to Medical Conditions or Safety Concerns. Self Care: Independent Functional Cognition: Independent DME/Equipment: Shower Hose Commercial Makeup Artist, Tub/Shower (molded shelves) DME/Equipment Comments Patient uses step up to transfer in /out of shower, eats soup for meals, poor hygiene noted. Patient reports ability to can for self, daughter reports otherwiswe. Drive Self: No OT Current Status Subjective Prefers to be called DORIE Pain Numeric Pain Scale: 0-No Pain (just tired, and uncomfortable) Mental Status/Objective Patient Orientation: Place, Time (, Monday, 2022), Situation (I fell and my heart is makking funny things) Attachments: Cash Catheter (PUR WIK), Oxygen Current Glasses/Contacts: No Hearing Aids: No Dentures/Partials: Yes (full set) Hand Dominance: Right Upper Extremity ROM WFLS Upper Extremity Coordination WFLs Upper Extremity Strength +3/5 ADL-Treatment Eating (QC): 6 Oral Hygiene (QC): 5 Shower/Bathe Self (QC): 7 (Much needed, linens and supplies providee, patient declines at this time) Upper Body Dressing (QC): 4 Lower Body Dressing (QC): 2 On/Off Footwear (QC): 2 Toileting Hygiene (QC): 3 does I/ADLs Education OT Patient Education: Correct positioning, Energy conservation, Exercise program, Instructions to caregiver, Modified ADL techniques, Progress toward Goal/Update tx plan, Purpose of tx/functional activities, Reviewed precautions, Rehab process, Safety issues, Transfer techniques Teaching Recipient: Patient, Family Teaching Methods: Demonstration, Discussion Response to Teaching: Verbalize Understanding, Reinforcement Needed Additional questions and placement concerns directed family to speak with SW OT Retirement Goals Retirement Goals Eating (QC): 6 Oral Hygiene (QC): 6 Toileting Hygiene (QC): 6 Shower/Bathe Self (QC): 5 Upper Body Dressing (QC): 5 Lower Body Dressing (QC): 5 On/Off Footwear (QC): 5 1=Demonstrate adherence to instructed precautions during ADL tasks. 2=Patient will verbalize/demonstrate understanding of assistive devices/modifications for ADL. 3=Patient will improve strength/tolerance for activity to enable patient to perform ADL's. OT Education/Plan Problem List/Assessment Assessment: Decreased Activ Tolerance, Decreased Safety Aware, Decreased UE Strength, Impaired Funct Balance, Impaired Self-Care Skills Discharge Recommendations Plan/Recommendations: Continue POC Therapy Discharge Recommendati: Post Acute OT Equpiment Recommendations-D/C: Bath Chair, Extended Shower Sprayer, Hip Kit Patient/Family Goals to go home Treatment Plan/Plan of Care Treatment,Training & Education: Yes Patient would benefit from OT for education, treatment and training to promote independence in ADL's, mobility, safety and/or upper extremity function for ADL's. Plan of Care: ADL Retraining, Functional Mobility, Group Exercise/Act as Ind, UE Funct Exercise/Act Treatment Duration: Jun 26, 2023 Frequency: 3 times per week (3-5 times per week) Estimated Hrs Per Day: .25 hour per day Agreement: Yes Rehab Potential: Fair Time Start Time: 13:30 Stop Time: 14:04 DATE: Jun 19, 2023 Total Time Billed (hr/min): 34 Billed Treatment Time YUE SHORT, 34 min TULIO MENDOZA OT Jun 19, 2023 13:33
--- NOTE | 2023-06-19 14:34 | Physical Therapy Evaluation ---
PT Evaluation-General Medical Diagnosis Admission Date Jun 18, 2023 at 22:19 Medical Diagnosis: fall/facial contusion Onset Date: Jun 18, 2023 Therapy Diagnosis Therapy Diagnosis: impairec mobility/generalized weakness Height/Weight Height (Feet): 5 Height (Inches): 7.00 Weight (Pounds): 270 Precautions Precautions/Isolations: Fall Prevention, Standard Precautions Referral Physician: So Reason for Referral: Evaluation/Treatment Medical History Pertinent Medical History: Atrial Fib, DM, Macular Degenertion Current History EMS secondary to fall Reviewed History: Yes Social History Home: Single Level Entry Into Home: Stairs With Railing PT Steps Into Home: 3 Prior Prior Level of Function SCALE: Activities may be completed with or without assistive devices. 5-Mrsjkiiwfg-yvbgtzs completes the activity by him/herself with no assistance from a helper. 5-Set-up or Clean-up Assistance-helper sets up or cleans up; patient completes activity. [place] assists only prior to or following the activity. 4-Supervision or Touching Assistance-helper provides verbal cues and/or touching/steadying and/or contact guard assistance as patient completes activity. Assistance may be provided throughout the activity or intermittently. 3-Partial/Moderate Assistance-helper does LESS THAN HALF the effort. [place] lifts, holds or supports trunk or limbs, but provides less than half the effort. 2-Substantial/Maximal Assistance-helper does MORE THAN HALF the effort. [place] lifts or holds trunk or limbs and provides more than half the effort. 6-Kkbzlgvho-oftznm does ALL the effort. Patient does none of the effort to complete the activity. Or, the assistance of 2 or more helpers is required for the patient to complete the activity. If activity was not attempted, code reason: 7-Patient Refused. 9-Not Applicable-not attempted and the patient did not perform the activity before the current illness, exacerbation or injury. 10-Not Attempted due to Environmental Limitations-(lack of equipment, weather restraints, etc.). 88-Not Attempted due to Medical Conditions or Safety Concerns. Bed Mobility: 6 Transfers (B,C,W/C): 6 Gait: 6 Indoor Mobility (Ambulation): Independent Prior Devices Use: Walker furniture walks per patient report due to house situation PT Evaluation-Current Subjective Patient agrees to therapy. Objective Patient Orientation: Normal For Age ROM/Strength ROM Lower Extremities bilateral LE WFL Strength Lower Extremities 3/5 grossly bilateral LE all planes Integumentary/Posture Integumentary refer to nursing notes Bladder Incontinence: Yes Posture trunk flexed posture Neuromuscular (Tone, Coordination, Reflexes) grossly intact Sensory Vision: Blind Legally Hearing: Functional Hand Dominance: Right Transfers Lying to Sitting/Side of Bed(Q: 2 Sit to Stand (QC): 4 Chair/Mix-th-Oclju Xfer(QC): 4 Toilet Transfer (QC): 4 Gait Mode of Locomotion: Walk Anticipated Mode of Locomotion: Walk Walk 10 feet (QC): 4 Walk 50 ft with 2 Turns(QC): 88 Walk 150 ft (QC): 88 Distance: 15' x 2 Gait Assistive Device: FWW Comments/Gait Description WBOS/shuffle gait sequence Balance Sitting Static: Normal Sitting Dynamic: Normal Standing Static: Fair Standing Dynamic: Fair Picking up an Object (QC): 9 Assessment/Needs Patient will benefit from skilled PT to address functional strength and mobility to improve current LOF to safely return to home at maximum LOF. Rehab Potential: Fair PT Food Beverage Attendant Goals Fdc Goals PT Fdc Goals Time Frame: Jul 01, 2023 Roll Left & Right (QC): 6 Sit to Lying (QC): 6 Lying-Sitting on Side/Bed(QC): 6 Sit to Stand (QC): 6 Chair/Ycu-uv-Uudhs Xfer(QC): 6 Toilet Transfer (QC): 6 Walk 10 feet (QC): 4 Walk 50ft with 2 Turns (QC): 4 PT Plan Problem List Problem List: Activity Tolerance, Functional Strength, Safety, Balance, Gait, Transfer, Bed Mobility Treatment/Plan Treatment Plan: Continue Plan of Care Treatment Plan: Bed Mobility, Education, Functional Activity Bear, Functional Strength, Gait, Safety, Therapeutic Exercise, Transfers Treatment Duration: Jul 01, 2023 Frequency: 5 times per week Estimated Hrs Per Day: .25 hour per day Time Time In: 1325 Time Out: 1345 DATE: Jun 19, 2023 Total Billed Treatment Time: 20 Total Billed Treatment 1 visit EVModC 20 min MIRANDA LAUREANO PT Jun 19, 2023 14:34
[2023-06-19] MEDS ORDERED: MILK OF MAGNESIA 400 MG/5 ML 30 ML UDC PO PRN (15:15)
[2023-06-19] MEDS ORDERED: CALCIUM CARBONATE 500 MG CHEW TABLET PO PRN (15:15)
[2023-06-19] MEDS ORDERED: BISACODYL 10 MG SUPPOSITORY PR PRN (15:15)
[2023-06-19] MEDS ORDERED: ONDANSETRON INJECTION 4 MG/2 ML (SDV) IV PRN (15:15)
[2023-06-19] MEDS ORDERED: ANTACID SUSPENSION 30 ML UDC PO PRN (15:15)
[2023-06-19] MEDS ORDERED: ONDANSETRON 4 MG ORAL DISSOLVE TABLET PO PRN (15:15)
[2023-06-19] MEDS ORDERED: LACTULOSE SYRUP 10GM/15ML 30ML UDC PO PRN (15:15)
[2023-06-19] MEDS ORDERED: warFARin 5 MG (COUMADIN) TAB PO SCH ×2 (15:15→18:00)
[2023-06-19] MEDS ORDERED: warFARin 1 MG (COUMADIN) TAB PO SCH ×2 (15:15→18:00)
--- NOTE | 2023-06-19 15:43 | History & Physical-Hospitalist ---
History of Present Illness HPI/Chief Complaint Sonia Wilburn is a 77 year old female with PMH HTN, AFib on coumadin, morbid obesity, who presented after a fall at home. She had gotten up and was going to the bathroom when she tripped and fell. She denies syncope. She clearly remembers her face hitting the ground. She had been in her normal state of health prior. She hit her face and her left knee. She is having knee pain. She denies fevers and chills. She denies chest pain and shortness of breath. She denies abdominal pain, nausea, and vomiting. She has no other complaints or concerns. Source: patient Exam Limitations: no limitations Date Seen 06/19/23 Time Seen by a Provider: 10:00 Attending Physician Rachael Goldstein Aprn PCP Admitting Physician: Vicki Gutierrez MD Attending Physician: Natan Cardenas MD Referring Physician Date of Admission Jun 18, 2023 at 22:19 Home Medications & Allergies Home Medications Reviewed patient Home Medication Reconciliation performed by pharmacy medication reconciliations splicing technician and/or nursing. Patients Allergies have been reviewed. Allergies Allergies Coded Allergies codeine (Verified Allergy, Unknown, 12/08/17) Past Ztyaqwu-Gzlsfe-Cwjjfh Hx Patient Social History Marrital Status: Employed/Student: retired Tobacco Use?: No Smokeless Tobacco Frequency: Never a User Use of E-Cig and/or Vaping dev: No Substance use?: No Alcohol Use?: No Pt feels they are or have been: No Immunizations Up To Date First/Initial COVID19 Vaccinat: 2020 Second COVID19 Vaccination Wero: 2020 Tetanus Booster (TDap): Less Than 5 Years Hepatitis A: No Hepatitis B: No PED Vaccines UTD: Yes Current Status status: No status: No Advance Directives: No Communicates: Verbally Primary Language: Swiss Preferred Spoken Language: Swiss Is interpretation needed?: No Sensory deficits: Vision impairment Implanted or Applied Medical D: None Past Medical History Surgeries: Adenoidectomy, Gallbladder, Hysterectomy, Orthopedic, Tonsillectomy Deep Vein Thrombosis, High Cholesterol Arthritis Diabetes, Non-Insulin dep Macular Degeneration Family Medical History No Pertinent Family Hx Review of Systems Constitutional: no symptoms reported Respiratory: no symptoms reported Cardiovascular: no symptoms reported Gastrointestinal: no symptoms reported Physical Exam Physical Exam Vital Signs Vital Signs - First Documented 06/18/23 20:22 Temp 36.0 Pulse 67 Resp 25 B/P (MAP) 179/92 (121) Pulse Ox 95 O2 Delivery Room Air Capillary Refill : Height, Weight, BMI Height: 5'7.00" Weight: 270lbs. oz. 122.179386ix; 46.13 BMI Method:Stated General Appearance: No Apparent Distress, Obese HEENT: PERRL/EOMI, Pharynx Normal, Other (left forehead and nose bruise) Neck: Normal Inspection, Supple Respiratory: Lungs Clear, Normal Breath Sounds, No Respiratory Distress Cardiovascular: Regular Rate, Rhythm, No Murmur Gastrointestinal: Normal Bowel Sounds, Non Tender, Soft Extremity: Pedal Edema, Other (left knee bruising) Neurologic/Psychiatric: Alert, Normal Mood/Affect Skin: Warm/Dry, Ecchymosis Results Results/Procedures Labs Laboratory Tests 06/18/23 20:25 06/19/23 02:20 Patient resulted labs reviewed. Imaging: Reviewed Imaging Report Assessment/Plan Admission Diagnosis Fall Admission Status: Inpatient Order (span 2 midnights) Reason for Inpatient Admission: Elevated troponin Assessment and Plan Fall Imaging without acute fracture or other abnormalities PT/OT IRU evaluation Elevated troponin Troponin mildly elevated, stable Cardiology consulted AFib HTN INR therapeutic Continue home meds Continue coumadin Morbid obesity Clinically significant, no acute management needs Diagnosis/Problems Diagnosis/Problems (1) Fall Status: Acute Qualifiers: Encounter type: initial encounter Qualified Codes: W19.XXXA - Unspecified fall, initial encounter (2) Facial contusion Status: Acute Qualifiers: Encounter type: initial encounter Qualified Codes: S00.83XA - Contusion of other part of head, initial encounter (3) Elevated troponin Status: Acute (4) HTN (hypertension) Status: Chronic (5) On Coumadin for atrial fibrillation Status: Chronic (6) PAF (paroxysmal atrial fibrillation) Status: Chronic (7) Morbid obesity Status: Chronic NATAN CARDENAS MD Jun 19, 2023 15:42
[2023-06-19] MEDS: ACETAMINOPHEN 325 MG TABLET PO PRN (17:22)
[2023-06-19] MEDS: SENNOSIDES 8.6 MG TABLET PO SCH (20:34)
[2023-06-19] MEDS: DOCUSATE SODIUM 100 MG CAPSULE PO SCH (20:34)
[2023-06-19] MEDS: LATANOPROST 0.005% OPHTH SOLN 2.5 ML OU SCH (21:05)
[2023-06-19] MEDS: dilTIAZem ER 180 MG CAPSULE PO SCH (21:05)
[2023-06-19] MEDS: TIMOLOL MALEATE 0.5% 5 ML (TIMOPTIC) BTL OU SCH (21:05)
[2023-06-19] MEDS: MELATONIN 3 MG TABLET PO PRN (21:05)
[2023-06-20] VITALS (7 sets, daily range): BP systolic 123–140; BP diastolic 59–91
[2023-06-20] MEDS: ACETAMINOPHEN 325 MG TABLET PO PRN ×3 (02:30→20:42)
[2023-06-20 05:08] LABS: INR 2.4 (0.8-1.4); PROTHROMBIN TIME PATIENT 25.6 SEC (12.2-14.7)
[2023-06-20] MEDS: CATHETER FLUSH 10 ML SYR IVP SCH ×3 (05:48→20:43)
--- NOTE | 2023-06-20 08:16 | Cardiology Progress Note ---
Subjective Date Seen by Provider: Jun 20, 2023 Time Seen by Provider: 08:15 Subjective/Events-last exam Patient was seen at bedside, laying down in bed, no new complain Review of Systems General: No Chills, No Night Sweats; Fatigue; No Malaise, No Appetite, No Other HEENT: No Head Aches, No Visual Changes, No Eye Pain, No Ear Pain, No Dysphasia, No Sinus Congestion, No Post Nasal Drip, No Sore Throat, No Other Pulmonary: No Dyspnea, No Cough, No Pleuritic Chest Pain, No Other Cardiovascular: No: Chest Pain, Palpitations, Orthopnea, Paroxysmal Noc. Dyspnea, Edema, Lt Headedness, Other Objective-Cardiology Exam Last Set of Vital Signs Vital Signs 06/20/23 07:45 Temp 36.3 Pulse 86 Resp 31 B/P (MAP) 129/65 (86) Pulse Ox 97 O2 Delivery Room Air I&O Intake and Output 06/20/23 00:00 Intake Total 760 ml Output Total 1600 ml Balance -840 ml Intake Oral 760 ml Output Urine Total 1600 ml # Voids 1 # Bowel Movements 1 General: Alert, Oriented X3, Cooperative HEENT: Atraumatic, PERRLA Neck: Supple, No JVD, No Thyromegaly Lungs: Clear to Auscultation, Normal Air Movement Heart: Regular Rate, Normal S1, Normal S2, No Murmurs Abdomen: Normal Bowel Sounds, Soft, No Tenderness, No Hepatosplenomegaly, No Masses Extremities: No Clubbing, No Cyanosis, No Edema, Normal Pulses, No Tenderness/Swelling Skin: No Rashes, No Breakdown, No Significant Lesion Neuro: Normal Gait, Normal Speech, Strength at 5/5 X4 Ext, Normal Tone, Sensation Intact Psych/Mental Status: Mental Status NL, Mood NL Results Lab Laboratory Tests Test 06/20/23 04:44 Range/Units Prothrombin Time 25.6 H 12.2-14.7 SEC INR Comment 2.4 H 0.8-1.4 A/P-Cardiology Admission Diagnosis Sinus node dysfunction Paroxysmal atrial fibrillation Chest pain Non-ST elevation myocardial infarction Assessment/Plan Fall with trauma to the face and bruising on the face Does not recall syncope. Chest pain, resembling angina. Had mild elevation in troponin which has been flat. We will continue to monitor troponin and evaluate twelve-lead EKG and start nitroglycerin Lexiscan stress test done in [place] [address] Villasenor reported as no ischemia or infarction with ejection fraction 65% 2D echo was done in April 2023 with normal LV size, EF 50 to 55%, biatrial enlargement, PA pressure 40 to 45 mmHg Sinus node dysfunction, sinus bradycardia and pauses with first-degree AV block and right bundle branch block Patient has been maintained on diltiazem CD180 and metoprolol ER 100 Continue to hold metoprolol and Cardizem and monitor heart rate Paroxysmal atrial fibrillation, has been in sinus rhythm Maintained on Coumadin Currently on hold. Continue to monitor heart rate Hypertension, monitor blood pressure Hyperlipidemia, monitor lipids Chronic pedal edema for which use Lasix 40 mg daily Diabetes mellitus, followed by primary care physician Rheumatoid arthritis, bilateral TKR Unsteady gait FAHAD MEJIA MD Jun 20, 2023 08:16
[2023-06-20] MEDS: DOCUSATE SODIUM 100 MG CAPSULE PO SCH ×2 (08:34→20:42)
[2023-06-20] MEDS: SENNOSIDES 8.6 MG TABLET PO SCH ×2 (08:34→20:42)
[2023-06-20] MEDS: NITROGLYCERIN 0.4 MG/HR PATCH TD SCH (08:34)
[2023-06-20] MEDS: NITROGLYCERIN PATCH REMOVAL TP SCH (08:35)
[2023-06-20] MEDS: TIMOLOL MALEATE 0.5% 5 ML (TIMOPTIC) BTL OU SCH ×2 (08:35→20:42)
--- NOTE | 2023-06-20 08:35 | Physical Therapy Daily Note ---
PT Daily Note-Current Subjective Patient lying supine in bed upon PT arrival, agreeable to treatment. Patient rates pain at 0/10. Pain Section J - Health Conditions 1. Rarely or not at all 2. Occasionally 3. Frequently 4. Almost constantly 8. Unable to answer Pain Effect on Sleep: 1 Pain Interference with Therapy: 1 Pain Interference w/Day-to-Day: 1 Mental Status Patient Orientation: Person, Place, Time, Situation Transfers SCALE: Activities may be completed with or without assistive devices. 3-Zqbvpoaoni-fzrlttt completes the activity by him/herself with no assistance fr om a helper. 5-Set-up or Clean-up Assistance-helper sets up or cleans up; patient completes activity. [place] assists only prior to or following the activity. 4-Supervision or Touching Assistance-helper provides verbal cues and/or touching/steadying and/or contact guard assistance as patient completes activity. Assistance may be provided throughout the activity or intermittently. 3-Partial/Moderate Assistance-helper does LESS THAN HALF the effort. [place] lifts, holds or supports trunk or limbs, but provides less than half the effort. 2-Substantial/Maximal Assistance-helper does MORE THAN HALF the effort. [place] lifts or holds trunk or limbs and provides more than half the effort. 0-Hbshnflea-fnikso does ALL the effort. Patient does none of the effort to complete the activity. Or, the assistance of 2 or more helpers is required for the patient to complete the activity. If activity was not attempted, code reason: 7-Patient Refused. 9-Not Applicable-not attempted and the patient did not perform the activity before the current illness, exacerbation or injury. 10-Not Attempted due to Environmental Limitations-(lack of equipment, weather restraints, etc.). 88-Not Attempted due to Medical Conditions or Safety Concerns. Roll Left & Right (QC): 3 Sit to Lying (QC): 3 Lying to Sitting/Side of Bed(Q: 3 Sit to Stand (QC): 4 Chair/Owe-fm-Bmpjd Xfer(QC): 4 Car Transfer (QC): 4 Weight Bearing Right Lower Extremity: Right Full Weight Bearing Left Lower Extremity: Left Full Weight Bearing Gait Training Does the Patient Walk?: Yes Distance: 80' Walk 10 feet (QC): 4 Walk 50 ft with 2 Turns(QC): 4 Gait Persons Needed: 1 Gait Assistive Device: FWW Assessment Current Status: Fair Progress Patient tolerated treatment well. Performs bed mobility with min A and transfers with CGA. Patient ambulates 80 feet with FWW, with CGA and verbal cues for path due to vision. Patient in chair post treatment with all needs met, nursing notified, call light in hand. PT Nursing Home Goals Nursing Home Goals PT Substation Mechanic Goals Time Frame: Jul 01, 2023 Roll Left & Right (QC): 6 Sit to Lying (QC): 6 Lying-Sitting on Side/Bed(QC): 6 Sit to Stand (QC): 6 Chair/Evw-as-Biaro Xfer(QC): 6 Toilet Transfer (QC): 6 Walk 10 feet (QC): 4 Walk 50ft with 2 Turns (QC): 4 PT Plan Treatment/Plan Treatment Plan: Continue Plan of Care Treatment Plan: Bed Mobility, Education, Functional Activity Bear, Functional Strength, Gait, Safety, Therapeutic Exercise, Transfers Treatment Duration: Jul 01, 2023 Frequency: 5 times per week Estimated Hrs Per Day: .25 hour per day Safety Risks/Education Patient Education: Gait Training, Transfer Techniques Teaching Recipient: Patient Teaching Methods: Demonstration, Discussion Response to Teaching: Verbalize Understanding, Return Demonstration Time Time In: 816 Time Out: 832 DATE: Jun 20, 2023 Total Billed Treatment Time: 16 Total Billed Treatment Visit, GT DOYLE BRIGGS PT Jun 20, 2023 08:35
--- NOTE | 2023-06-20 12:37 | Progress Note - Hospitalist ---
Subjective HPI/CC On Admission Date Seen by Provider: Jun 20, 2023 Time Seen by Provider: 09:35 Sonia Wilburn is a 77 year old female with PMH HTN, AFib on coumadin, morbid obesity, who presented after a fall at home. She had gotten up and was going to the bathroom when she tripped and fell. She denies syncope. She clearly remembers her face hitting the ground. She had been in her normal state of health prior. She hit her face and her left knee. She is having knee pain. She denies fevers and chills. She denies chest pain and shortness of breath. She denies abdominal pain, nausea, and vomiting. She has no other complaints or concerns. Subjective/Events-last exam She is feeling better. She is going to take a shower. She is still feeling weak. She has agreed to go to a shelter facility. Objective Exam Vital Signs Vital Signs Date Time Temp Pulse Resp B/P (MAP) Pulse Ox O2 Delivery O2 Flow Rate FiO2 06/20/23 08:00 96 Room Air 06/20/23 07:45 36.3 86 31 129/65 (86) Capillary Refill : General Appearance: No Apparent Distress, Obese Respiratory: Lungs Clear, No Respiratory Distress Cardiovascular: Regular Rate, Rhythm, No Murmur Gastrointestinal: Normal Bowel Sounds, Soft Extremity: No Inflammation; Pedal Edema Neurologic/Psychiatric: Alert, Normal Mood/Affect Skin: Ecchymosis Results/Procedures Lab Patient resulted labs reviewed. Imaging: Reviewed Imaging Report Assessment/Plan Assessment and Plan Assess & Plan/Chief Complaint Fall Facial contusion Imaging without acute fracture or other abnormalities PT/OT following for SNF placement Elevated troponin Troponin mildly elevated, stable Cardiology following AFib HTN INR therapeutic Continue home meds Continue coumadin Morbid obesity Clinically significant, no acute management needs Diagnosis/Problems Diagnosis/Problems (1) Fall Status: Acute Qualifiers: Encounter type: initial encounter Qualified Codes: W19.XXXA - Unspecified fall, initial encounter (2) Facial contusion Status: Acute Qualifiers: Encounter type: initial encounter Qualified Codes: S00.83XA - Contusion of other part of head, initial encounter (3) Elevated troponin Status: Acute (4) HTN (hypertension) Status: Chronic (5) On Coumadin for atrial fibrillation Status: Chronic (6) PAF (paroxysmal atrial fibrillation) Status: Chronic (7) Morbid obesity Status: Chronic NATAN CARDENAS MD Jun 20, 2023 12:37
--- NOTE | 2023-06-20 14:58 | Occupational Ther Daily Note ---
OT Current Status-Daily Note Subjective Patient in new room fourth floor. Reports marko bed is comfortable and wishes she could take it with her ot [facility] for rehab stay. Patient listening to audio books. Appearance Edema/bruising present on forehead and around eyes. Mental Status/Objective Patient Orientation: Person, Place, Time, Situation ADL-Treatment Min assistance for Ambulation from bed to bathroom w/ tactile cues for visual impairment and direction Mod assit rise from commode and min assist to lower to commode.OT stabilizes patient while patient performs LB dressing management tasks. Patient uses FWW and GBs for balance. Therapy Code Descriptions/Definitions Functional [place] Measure: 0=Not Assessed/NA 4=Minimal Assistance 1=Total Assistance 5=Supervision or Setup 2=Maximal Assistance 6=Modified [place] 3=Moderate Assistance 7=Complete IndependenceSCALE: Activities may be completed with or without assistive devices. 3-Urccoxvjpf-vohxrpg completes the activity by him/herself with no assistance from a helper. 5-Set-up or Clean-up Assistance-helper sets up or cleans up; patient completes activity. [place] assists only prior to or following the activity. 4-Supervision or Touching Assistance-helper provides verbal cues and/or touching/steadying and/or contact guard assistance as patient completes activity. Assistance may be provided throughout the activity or intermittently. 3-Partial/Moderate Assistance-helper does LESS THAN HALF the effort. [place] lifts, holds or supports trunk or limbs, but provides less than half the effort. 2-Substantial/Maximal Assistance-helper does MORE THAN HALF the effort. [place] lifts or holds trunk or limbs and provides more than half the effort. 9-Vgyqujkxl-miofdr does ALL the effort. Patient does none of the effort to complete the activity. Or, the assistance of 2 or more helpers is required for the patient to complete the activity. If activity was not attempted, code reason: 7-Patient Refused. 9-Not Applicable-not attempted and the patient did not perform the activity before the current illness, exacerbation or injury. 10-Not Attempted due to Environmental Limitations-(lack of equipment, weather restraints, etc.). 88-Not Attempted due to Medical Conditions or Safety Concerns. Eating (QC): 5 Oral Hygiene (QC): 5 (set up w/ positional instruction d/t vision deficits) Lower Body Dressing (QC): 4 Toileting Hygiene (QC): 4 Toilet Transfer (QC): 4 Education OT Patient Education: Correct positioning, Exercise program, Modified ADL techniques, Progress toward Goal/Update tx plan, Reviewed precautions, Rehab process, Safety issues, Transfer techniques, Other (SNF concerns and questions) Teaching Recipient: Patient, Family Response to Teaching: Verbalize Understanding, Reinforcement Needed OT Fdc Goals Teacher Lip Reading Goals Eating (QC): 6 Oral Hygiene (QC): 6 Toileting Hygiene (QC): 6 Shower/Bathe Self (QC): 5 Upper Body Dressing (QC): 5 Lower Body Dressing (QC): 5 On/Off Footwear (QC): 5 1=Demonstrate adherence to instructed precautions during ADL tasks. 2=Patient will verbalize/demonstrate understanding of assistive devices/mod ifications for ADL. 3=Patient will improve strength/tolerance for activity to enable patient to perform ADL's. OT Education/Plan Problem List/Assessment Assessment: Decreased Activ Tolerance, Decreased Safety Aware, Decreased UE Strength, Impaired Coordination, Impaired Funct Balance, Impaired Self-Care Skills Discharge Recommendations Plan/Recommendations: Continue POC Therapy Discharge Recommendati: Post Acute OT Treatment Plan/Plan of Care Treatment,Training & Education: Yes Patient would benefit from OT for education, treatment and training to promote independence in ADL's, mobility, safety and/or upper extremity function for ADL's. Plan of Care: ADL Retraining, Functional Mobility, Group Exercise/Act as Ind, UE Funct Exercise/Act Treatment Duration: Jun 26, 2023 Frequency: 3 times per week (3-5 times per week) Estimated Hrs Per Day: .25 hour per day Agreement: Yes Rehab Potential: Fair Time Start Time: 14:38 Stop Time: 14:59 DATE: Jun 20, 2023 Total Time Billed (hr/min): 21 Billed Treatment Time ADL 21 min TULIO MENDOZA OT Jun 20, 2023 14:58
[2023-06-20] MEDS ORDERED: warFARin 3 MG (COUMADIN) TAB PO SCH (18:00)
[2023-06-20] MEDS: LATANOPROST 0.005% OPHTH SOLN 2.5 ML OU SCH (20:42)
[2023-06-20] MEDS: MELATONIN 3 MG TABLET PO PRN (20:42)
[2023-06-20] MEDS: dilTIAZem ER 180 MG CAPSULE PO SCH (20:42)
[2023-06-21 03:03] VITALS: BP 135/64
[2023-06-21] MEDS: CATHETER FLUSH 10 ML SYR IVP SCH (05:45)
[2023-06-21] MEDS: ACETAMINOPHEN 325 MG TABLET PO PRN (07:41)
[2023-06-21 07:54] VITALS: BP 151/83
[2023-06-21] MEDS: DOCUSATE SODIUM 100 MG CAPSULE PO SCH (08:10)
[2023-06-21] MEDS: SENNOSIDES 8.6 MG TABLET PO SCH (08:10)
[2023-06-21] MEDS: TIMOLOL MALEATE 0.5% 5 ML (TIMOPTIC) BTL OU SCH (08:11)
[2023-06-21] MEDS: NITROGLYCERIN 0.4 MG/HR PATCH TD SCH (08:18)
[2023-06-21] MEDS: NITROGLYCERIN PATCH REMOVAL TP SCH (08:18)
--- NOTE | 2023-06-21 10:22 | Cardiology Progress Note ---
Subjective Date Seen by Provider: Jun 21, 2023 Time Seen by Provider: 10:00 Subjective/Events-last exam Patient is sitting up in chair, no new complaints. Objective-Cardiology Exam Last Set of Vital Signs Vital Signs 06/21/23 06/21/23 11:55 12:43 Temp 36.4 Pulse 46 Resp 18 B/P (MAP) 107/61 (76) Pulse Ox 98 O2 Delivery Room Air I&O Intake and Output 06/21/23 00:00 Intake Total 1300 ml Output Total 500 ml Balance 800 ml Intake Oral 1300 ml Output Urine Total 500 ml # Voids 2 # Bowel Movements 1 General: Alert, Oriented X3, Cooperative HEENT: Atraumatic, PERRLA Neck: Supple, No JVD, No Thyromegaly Lungs: Clear to Auscultation, Normal Air Movement Heart: Regular Rate, Normal S1, Normal S2, No Murmurs Abdomen: Normal Bowel Sounds, Soft, No Tenderness, No Hepatosplenomegaly, No Masses Extremities: No Clubbing, No Cyanosis, No Edema, Normal Pulses, No Tenderness/Swelling Skin: No Rashes, No Breakdown, No Significant Lesion Neuro: Normal Gait, Normal Speech, Strength at 5/5 X4 Ext, Normal Tone, Sensation Intact Psych/Mental Status: Mental Status NL, Mood NL A/P-Cardiology Admission Diagnosis Sinus node dysfunction Paroxysmal atrial fibrillation Chest pain Non-ST elevation myocardial infarction Assessment/Plan Fall with trauma to the face and bruising on the face Does not recall syncope. Chest pain, resembling angina, patient reporting improvement. Had mild elevation in troponin which has been flat. Lexiscan stress test done in [place] [address] Villasenor reported as no ischemia or infarction with ejection fraction 65% 2D echo was done in April 2023 with normal LV size, EF 50 to 55%, biatrial enlargement, PA pressure 40 to 45 mmHg Sinus node dysfunction, sinus bradycardia and pauses with first-degree AV block and right bundle branch block Patient has been maintained on diltiazem CD180 and metoprolol ER 100 Continue to hold metoprolol and Cardizem and monitor heart rate Paroxysmal atrial fibrillation, has been in sinus rhythm Maintained on Coumadin Hypertension, monitor blood pressure Hyperlipidemia, monitor lipids Chronic pedal edema for which use Lasix 40 mg daily Diabetes mellitus, followed by primary care physician Rheumatoid arthritis, bilateral TKR Unsteady gait Supervisory-Addendum Brief Supervisory Addendum Participated in pt care: history, MDM, physical Personally performed: exam, history, MDM Care discussed with: MAN Results interpretation: Verified all documentation Notes: Patient was seen and evaluated with Claribel, examination performed, management plan was discussed, agree with the current scribed note, I made few changes to the note using Italic font Patient was seen at bedside, sitting comfortably, feeling better Planning for discharge to retirement facility Continue on current medication, monitor INR and blood pressure CLARIBEL MARIE Jun 21, 2023 10:22 FAHAD MEJIA MD Jun 21, 2023 13:46
[2023-06-21 11:55] VITALS: BP 107/61
[2023-06-21] MEDS ORDERED: LATA2.5D19 OU (12:42)
[2023-06-21] MEDS ORDERED: CRAN250C2 PO (12:42)
[2023-06-21] MEDS ORDERED: ASCO100024 PO (12:42)
[2023-06-21] MEDS ORDERED: DILT180C85 PO (12:42)
[2023-06-21] MEDS ORDERED: MTP100TCR PO (12:42)
[2023-06-21] MEDS ORDERED: WRF1T PO (12:42)
[2023-06-21] MEDS ORDERED: ATOR20TA66 PO (12:42)
[2023-06-21] MEDS ORDERED: FISH1CAP15 PO (12:42)
[2023-06-21] MEDS ORDERED: ACET-2650 PO (12:42)
[2023-06-21] MEDS ORDERED: DOCU100C37 PO (12:42)
[2023-06-21] MEDS ORDERED: CALC-694 PO (12:42)
[2023-06-21] MEDS ORDERED: WARF-48 PO (12:42)
[2023-06-21] MEDS ORDERED: POTA40LI3 PO (12:42)
[2023-06-21] MEDS ORDERED: FURO80TA3 PO (12:42)
[2023-06-21] MEDS ORDERED: LISI10TA25 PO (12:42)
[2023-06-21] MEDS ORDERED: ELDE350C PO (12:42)
[2023-06-21] MEDS ORDERED: TIMO5DRO16 OU (12:42)
--- NOTE | 2023-06-21 13:08 | Discharge Inst-Skilled Nursing ---
Discharge Inst-Skilled NF Consult/Follow Up/Orders Follow Up Appt.: PCP in a week or two Skilled NF Admit to: [facility] Certification (SNF) I certify that SNF services are required to be given on an inpatient basis because of the above named patient's need for intermediate care on a continuing basis for the conditions(s) for which he/she was receiving inpatient hospital services prior to his/her transfer to the SNF. [facility] Order: Nursing Services, Project Systems Engineer-Evaluate & Treat, Physical Therapy-Evaluate & Treat Oxygen Delivery Method: Room Air Discharge Diet: Low Sodium Diet Daily Activity as Tolerated: Yes New & Resume Previous Orders Desi Cardenas Jun 21, 2023 13:07 DESI CARDENAS MD Jun 21, 2023 13:08
[2023-06-21 13:50] VITALS: BP 107/61
--- NOTE | 2023-06-21 14:43 | Physical Therapy Daily Note ---
PT Daily Note-Current Subjective Patient sitting in chair upon PT arrival, agreeable to treatment. Patient rates pain at 0/10. Pain Section J - Health Conditions 1. Rarely or not at all 2. Occasionally 3. Frequently 4. Almost constantly 8. Unable to answer Pain Effect on Sleep: 1 Pain Interference with Therapy: 1 Pain Interference w/Day-to-Day: 1 Transfers SCALE: Activities may be completed with or without assistive devices. 0-Sbmiolkkhd-emdgxer completes the activity by him/herself with no assistance from a helper. 5-Set-up or Clean-up Assistance-helper sets up or cleans up; patient completes activity. [place] assists only prior to or following the activity. 4-Supervision or Touching Assistance-helper provides verbal cues and/or touching/steadying and/or contact guard assistance as patient completes activity. Assistance may be provided throughout the activity or intermittently. 3-Partial/Moderate Assistance-helper does LESS THAN HALF the effort. [place] lifts, holds or supports trunk or limbs, but provides less than half the effort. 2-Substantial/Maximal Assistance-helper does MORE THAN HALF the effort. [place] lifts or holds trunk or limbs and provides more than half the effort. 3-Cdvqlbcwi-tcuhly does ALL the effort. Patient does none of the effort to complete the activity. Or, the assistance of 2 or more helpers is required for the patient to complete the activity. If activity was not attempted, code reason: 7-Patient Refused. 9-Not Applicable-not attempted and the patient did not perform the activity before the current illness, exacerbation or injury. 10-Not Attempted due to Environmental Limitations-(lack of equipment, weather restraints, etc.). 88-Not Attempted due to Medical Conditions or Safety Concerns. Sit to Stand (QC): 3 Chair/Ewc-tq-Wrbmy Xfer(QC): 3 Weight Bearing Right Lower Extremity: Right Full Weight Bearing Left Lower Extremity: Left Full Weight Bearing Assessment Current Status: Fair Progress Patient tolerated treatment well. Performs bed mobility with min A and transfers with CGA. Patient ambulates 150 feet with FWW, with CGA and verbal cues for path due to vision. Patient in chair post treatment with all needs met, nursing notified, call light in hand. PT Prison Goals Treating Machine Operator Goals PT Prison Goals Time Frame: Jul 01, 2023 Roll Left & Right (QC): 6 Sit to Lying (QC): 6 Lying-Sitting on Side/Bed(QC): 6 Sit to Stand (QC): 6 Chair/Kvh-pl-Kgdwq Xfer(QC): 6 Toilet Transfer (QC): 6 Walk 10 feet (QC): 4 Walk 50ft with 2 Turns (QC): 4 PT Plan Treatment/Plan Treatment Plan: Continue Plan of Care Treatment Plan: Bed Mobility, Education, Functional Activity Bear, Functional Strength, Gait, Safety, Therapeutic Exercise, Transfers Treatment Duration: Jul 01, 2023 Frequency: 5 times per week Estimated Hrs Per Day: .25 hour per day Safety Risks/Education Patient Education: Gait Training, Transfer Techniques Time Time In: 1025 Time Out: 1035 DATE: Jun 21, 2023 Total Billed Treatment Time: 10 Total Billed Treatment Visit, DOYLE JIMENEZ PT Jun 21, 2023 14:43
--- NOTE | 2023-06-21 17:39 | Discharge Summary ---
Discharge Summary Hospital Course Problems/Dx: (1) Fall Status: Acute Qualifiers: Qualified Codes: W19.XXXA - Unspecified fall, initial encounter (2) Facial contusion Status: Acute Qualifiers: Qualified Codes: S00.83XA - Contusion of other part of head, initial encounter (3) Elevated troponin Status: Acute (4) HTN (hypertension) Status: Chronic (5) On Coumadin for atrial fibrillation Status: Chronic (6) PAF (paroxysmal atrial fibrillation) Status: Chronic (7) Morbid obesity Status: Chronic Hospital Course Date of Admission: Jun 18, 2023 at 22:19 Admission Diagnosis : Fall, facial contusion, AFib on coumadin, elevated troponin Family Physician/Provider: Rachael Goldstein Aprn Date of Discharge: 06/21/23 Discharge Diagnosis: Fall, facial contusion, AFib on coumadin, elevated troponin Hospital Course: Sonia Wilburn is a 77 year old female with PMH HTN, HLD, AFib on coumadin, RA, morbid obesity, who was admitted after a fall with facial contusion, knee hematoma, and elevated troponin. Her trauma evaluation revealed no acute fractures or other injuries requiring intervention. Cardiology was consulted and assisted with her care. She follows with Dr. Villasenor as an outpatient. Her troponin was mildly elevated and remained stable. She initially reported some chest pain which resolved. Her INR remained therapeutic. She was debilitated and worked with therapy. She was discharged to [facility] for continued skilled therapy needs. Labs and Pending Lab Test: Home Meds Active Tylenol Arthritis (Acetaminophen) 650 Mg Tablet.er 1,300 Mg PO BID 30 Days TAKES 2 (650MG) TABS Fish Oil 1,200 mg Fish Oil (Fish Oil/Dha/Epa) 1,200 Mg-144 Mg-216 Mg Capsule 1 Each PO DAILY 30 Days Vitamin C (Ascorbic Acid) 1,000 Mg Tablet 1,000 Mg PO DAILY 30 Days Elderberry (Elderberry Fruit) 350 Mg Capsule 2 Ea PO DAILY 30 Days Cranberry (Cranberry Extract) 250 Mg Capsule 500 Mg PO DAILY 30 Days TAKES 2 CAPS Docusate Sodium 100 Mg Capsule 200 Mg PO DAILY 30 Days TAKES 2 (100MG) CAPS Calcium 600 + Vit D Caplet (Calcium Carbonate/Vitamin D3) 600 Mg Calcium-10 Mcg (400 Unit) Tablet 1 Each PO BID 30 Days Furosemide 80 Mg Tablet 40 Mg PO 1800 30 Days TAKES 1/2 OF AN 80MG TAB Lisinopril 10 Mg Tablet 10 Mg PO DAILY 30 Days Warfarin Sodium 5 Mg Tablet 2.5 Mg PO Q48H 30 Days TAKES 1/2 OF A 1MG AND 1/2 OF A 5MG TO EQUAL 3MG EVERY OTHER DAY Warfarin Sodium 1 Mg Tablet 0.5 Mg PO Q48H 30 Days TAKES 1/2 OF A 1MG AND 1/2 OF A 5MG TO EQUAL 3MG EVERY OTHER DAY Warfarin Sodium 5 Mg Tablet 5 Mg PO Q48H 30 Days TAKES 1 MG +5MG TO EQUAL 6MG EVERY OTHER DAY Xalatan (Latanoprost) 0.005 % Drops 1 Drop OU HS 30 Days Timolol Maleate 0.5% (Timolol Maleate) 0.5 % Drops 1 Drop OU BID 30 Days Atorvastatin Calcium 20 Mg Tablet 20 Mg PO HS 30 Days Diltiazem 24Hr ER (Diltiazem HCl) 180 Mg Cap.er.24h 180 Mg PO HS 30 Days Warfarin Sodium 1 Mg Tablet 1 Mg PO Q48H 30 Days TAKES 1 MG +5MG TO EQUAL 6MG EVERY OTHER DAY Potassium Chloride 40 Meq/15 Ml Liquid 30 Ml PO BID 30 Days Metoprolol Succinate 100 Mg Tab.er.24h 100 Mg PO DAILY 30 Days Assessment/Pt Instructions See instructions Discharge Planning: >30 minutes discharge planning Discharge Instructions Discharge Diet: Low Sodium Diet Activity as Tolerated: Yes Consultations Cardiology Discharge Physical Examination Vital Signs Vital Signs Date Time Temp Pulse Resp B/P (MAP) Pulse Ox O2 Delivery O2 Flow Rate FiO2 06/21/23 13:50 36.4 46 18 107/61 98 Room Air General Appearance: No Apparent Distress, Obese Respiratory: Lungs Clear, No Respiratory Distress Cardiovascular: Regular Rate, Rhythm, No Murmur Gastrointestinal: Normal Bowel Sounds, Soft Extremity: Normal Inspection, No Pedal Edema Skin: Normal Color, Warm/Dry Allergies: Coded Allergies: codeine (Verified Allergy, Unknown, 12/08/17) Discharge Summary Date of Admission Jun 18, 2023 at 22:19 Date of Discharge Jun 21, 2023 at 14:05 Discharge Date: Jun 21, 2023 Discharge Time: 14:05 Admission Diagnosis Fall Discharge Diagnosis Fall Facial contusion Elevated troponin AFib HTN Morbid obesity (1) Fall Status: Acute Qualifiers: Qualified Codes: W19.XXXA - Unspecified fall, initial encounter (2) Facial contusion Status: Acute Qualifiers: Qualified Codes: S00.83XA - Contusion of other part of head, initial encounter (3) Elevated troponin Status: Acute (4) HTN (hypertension) Status: Chronic (5) On Coumadin for atrial fibrillation Status: Chronic (6) PAF (paroxysmal atrial fibrillation) Status: Chronic (7) Morbid obesity Status: Chronic NATAN CARDENAS MD Jun 21, 2023 17:39
--- NOTE | 2023-06-22 14:45 | Physician Query Clarification ---
PQ-Further Specificity Admission/Discharge Admission Date: Jun 18, 2023 at 22:19 Discharge Date: Jun 21, 2023 at 14:05 Dr. Cardenas, The medical record reflects the following clinical scenario: History/Risk Factors: face contusion, sinus node dysfunction, elevated troponin Clinical Findings: Troponin 06/18 0.048, 0.041, 06/19 0.045 Treatment: nitroglycerin, Coumadin Question: Can you further specify elevated troponin per the clinical indicators above? Please document a response in the Progress Notes or Discharge Summary. 1. NSTEMI 2. CO type 2 3. elevated troponin only 4. Other, with explanation of the clinical findings. 5. Clinically undetermined, no explanation for the clinical findings. PHYSICIAN RESPONSE Can you specify per above: Other, explanation/clinical finding Explanation/Clinical Findings Elevated troponin In responding to this query, please exercise your independent professional judgment. The purpose of this communication is to more accurately reflect the complexity of your patients condition. The fact that a question is asked does not imply that any particular answer is desired or expected. Thank you for your timely response to this clarification. Requestors name: Brent THIS PHYSICIAN QUERY FORM IS A PERMANENT PART OF THE MEDICAL RECORD BRENT MOLINA Jun 22, 2023 14:45 NATAN CARDENAS MD Jul 05, 2023 20:05
== END 2023-06-21 14:05 | DRG 948 ==
LOC: EDUNIT# 20:20 → ER 20:21 → CSD 22:19 → 4TH 06-20 12:34
PROVIDERS: ADMIT Family Medicine; ATTEND Internal Medicine
DX: R77.8 Other specified abnormalities of plasma proteins (principal); Z68.42 Body mass index [BMI] 45.0-49.9, adult; I49.5 Sick sinus syndrome; I44.0 Atrioventricular block, first degree; I45.10 Unspecified right bundle-branch block; I48.0 Paroxysmal atrial fibrillation; S00.83XA Contusion of other part of head, initial encounter; S80.02XA Contusion of left knee, initial encounter; E66.01 Morbid (severe) obesity due to excess calories; E11.9 Type 2 diabetes mellitus without complications; R26.81 Unsteadiness on feet; M06.9 Rheumatoid arthritis, unspecified; M19.90 Unspecified osteoarthritis, unspecified site; H35.30 Unspecified macular degeneration; E78.00 Pure hypercholesterolemia, unspecified; R60.0 Localized edema; Z79.01 Long term (current) use of anticoagulants; Z86.718 Personal history of other venous thrombosis and embolism; Z96.653 Presence of artificial knee joint, bilateral; Z79.899 Other long term (current) drug therapy; Z88.5 Allergy status to narcotic agent; W01.0XXA Fall on same level from slipping, tripping and stumbling without subsequent striking against object, initial encounter
CPT/HCPCS: 36415; 70450; 70486; 71045; 72125; 72128; 72131; 72170; 80048; 80053; 80061; 82550; 82553; 83735; 83874; 84484; 85025; 85610; 85730; 93005; 93041